=== PATIENT | female | born 1995 | race Caucasian/White ===

== ENCOUNTER 2016-11-17 14:19 | Emergency (ER) | payer OTHER ==
[~2016-11-17 14:19] MED LIST: ACET50TA PO; DIBU1OIN TOP; IBUP60TA PO; PRENTAB16 PO
[2016-11-17] MEDS ORDERED: ONDANSETRON 4MG/2ML VIAL (J2405) As Ordered ONE (14:46)
[2016-11-17] MEDS ORDERED: KETOROLAC 30 MG/ML VIAL (J1885) As Ordered ONE (14:46)
[2016-11-17 15:00] LABS: BASO % 0.3 % (0.0-1.0); EOS # 0.2 K/mm3 (0.0-0.50); EOS % 2.5 % (0.0-3.0); LARGE UNSTAINED CELL # 0.1 K/mm3 (0.0-0.4); LARGE UNSTAINED CELL % 1.2 % (0.0-4.0); LYMPH # 1.2 K/mm3 (1.5-6.5); LYMPH % 14.1 % (24.0-44.0); MEAN CORPUSCULAR HEMOGLOBIN 29.2 pg (27.0-33.0); MEAN CORPUSCULAR HGB CONC 33.8 g/dl (32.0-36.5); MEAN CORPUSCULAR VOLUME 86.4 fl (80.0-96.0); MONO # 0.3 K/mm3 (0.0-0.8); MONO % 2.9 % (0.0-5.0); NEUTROPHILS # 6.9 K/mm3 (1.8-7.7); NEUTROPHILS % 79.1 % (36.0-66.0); PLATELET COUNT, AUTOMATED 216 k/mm3 (150-450); RED CELL DISTRIBUTION WIDTH 12.8 % (11.5-14.5); WHITE BLOOD COUNT 8.7 K/mm3 (4.0-10.0)
[2016-11-17 16:07] LABS: ALBUMIN 3.7 GM/DL (3.2-5.2); ALBUMIN/GLOBULIN RATIO 1.16 (1.00-1.93); ALKALINE PHOSPHATASE 91 U/L (45-117); ALT/SGPT 27 U/L (12-78); AMYLASE 53 U/L (25-115); ANION GAP 8 MEQ/L (8-16); AST/SGOT 17 U/L (15-37); BILIRUBIN,DIRECT 0.1 MG/DL (0.0-0.2); BILIRUBIN,TOTAL 0.6 MG/DL (0.2-1.0); BLOOD UREA NITROGEN 21 MG/DL (7-18); CALCIUM LEVEL 8.2 MG/DL (8.5-10.1); CARBON DIOXIDE LEVEL 26 MEQ/L (21-32); CHLORIDE LEVEL 108 MEQ/L (98-107); CREATININE FOR GFR 0.86 MG/DL (0.55-1.02); GLOMERULAR FILTRATION RATE > 60.0 (>60); GLUCOSE, FASTING 110 MG/DL (70-105); SODIUM LEVEL 142 MEQ/L (136-145); TOTAL PROTEIN 6.9 GM/DL (6.4-8.2)
[2016-11-17] MEDS ORDERED: ISOVUE-370 76% 100ML VIAL (Q9967) As Ordered ONE (16:18)
--- NOTE | 2016-11-17 17:15 | REP ---
Clinical: Right lower quadrant pain. Technique: Axial contrast enhanced images from the lung bases to the pubic symphysis using 100 ml Isovue 370 intravenous contrast material with coronal and sagittal re-formations. Findings: Lung bases clear. Visualized heart and pericardium normal. Liver, spleen, pancreas, gallbladder, bilateral adrenal glands and kidneys are normal. The enteric system demonstrates a mild prominence to the small bowel which may reflect acute enteritis. There is no evidence for bowel obstruction and a normal terminal ileum and appendix are identified in the right lower quadrant. Pelvis demonstrates normal bladder and the age-appropriate uterus/adnexa. No pelvic fluid or ascites. No free air. No adenopathy. Vasculature normal. Surrounding musculoskeletal structures are intact. Impression: No evidence for acute appendicitis. Possible enteritis. Signed by Duncan Couch MD 11/17/2016 05:07 P
[2016-11-17] MEDS ORDERED: CIPROFLOXACIN 500 MG TAB As Ordered ONE (17:30)
[2016-11-17] MEDS ORDERED: PHENAZOPYRIDINE 100 MG TAB As Ordered ONE (17:30)
--- NOTE | 2016-11-17 17:41 | EDDOCDS ---
Physician Documentation [facility] Name: Kirstie Osborne Age: 21 yrs Sex: Female : 1995 Arrival Date: 11/17/2016 Time: 14:19 Bed I5 / M5 Private MD: [facility] Disposition: 11/17/16 17:24 Discharged to Home/Self Care. Impression: Urinary tract infection, site not specified, Abdominal and pelvic pain. - Condition is Stable. - Discharge Instructions: Abdominal Pain, Adult. - Prescriptions for Cipro 500 mg Oral Tablet - take 1 tablet by ORAL route every 12 hours; 14 tablet. Pyridium 200 mg Oral Tablet - take 1 tablet by ORAL route every 8 hours for 3 days; 9 tablet. Zofran 4 mg Oral Tablet - take 1 tablet by ORAL route 4 times per day As needed; 10 tablet. - Medication Reconciliation, Local Pharmacy Hours form. - Follow up: [facility]; When: As needed; Reason: Continuance of care. - Problem is an ongoing problem. - Symptoms are unchanged. Historical: - Allergies: No known drug Allergies; - Home Meds: 1. levothyroxine 175 mcg Oral tab 1 tab once daily 2. Zofran (as hydrochloride) 4 mg Oral tab (Last dose: 11/17/2016 13:30) 3. Ortho Tri-Cyclen (28) 0.18/0.215/0.25 mg-35 mcg (28) Oral tab 1 tab once daily - PMHx: Hypothyroidism; - PSHx: none; - Social history: Smoking status: Patient states was never smoker of tobacco. No barriers to communication noted, The patient speaks fluent Sammarinese, Speaks appropriately for age. - Family history: Not pertinent. - : The pt / caregiver states he / she is not on anticoagulants. Home medication list is obtained from the patient. - Exposure Risk Screening:: None identified. 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 (172.72 cm) (R); 17:37 BP 110 / 70; Pulse 80; Resp 18; Temp 97.0(O); Pulse Ox 100% on R/A; Pain 0/10; jmb 14:21 Body Mass Index 33.45 (99.79 kg, 172.72 cm) dd6 MDM: 14:35 NS 0.9% 1000 ml IV at bolus once ordered. ef1 14:35 Ondansetron 4 mg IVP once ordered. ef1 14:35 ketorolac 30 mg IVP once ordered. ef1 14:35 IV Saline Lock ordered. ef1 14:35 Undress patient appropriately for examination ordered. ef1 14:35 UCG by Nursing ordered. ef1 14:36 Amylase Ordered. EDMS 14:36 Basic Metabolic Profile Ordered. EDMS 14:36 CBC with Diff Ordered. EDMS 14:36 Lipase Ordered. EDMS 14:36 Liver Profile Ordered. EDMS 14:36 Urinalysis Ordered. EDMS 14:36 Urine Culture Ordered. EDMS 14:36 CT ABD & PELVIS: IV Contrast Only Ordered. EDMS 14:36 NOTHING BY MOUTH+DIET ordered. EDMS 15:10 CBC with Diff Reviewed. ef1 15:21 Urinalysis Reviewed. ef1 15:42 Financial registration complete. zo 15:50 [facility] Payment Agreement was scanned into [employer] and attached to record. zo 16:11 Basic Metabolic Profile Reviewed. ke 16:11 Lipase Reviewed. ke 16:11 Amylase Reviewed. ke 16:11 Liver Profile Reviewed. ke 17:25 Ciprofloxacin 500 mg PO once ordered. ke 17:25 Phenazopyridine 200 mg PO once ordered. ke Point of Care Testing: Urine : 14:48 hCG Reading: Negative; Control Reading: Positive; ms18 Ranges: Administered Medications: 14:52 Drug: NS 0.9% 1000 ml [sodium chloride 0.9 % intravenous solution] Route: IV; Rate: mcp bolus; Site: left hand; 14:52 Drug: Ondansetron 4 mg [ondansetron HCl 2 mg/mL intravenous solution (2 mL)] Route: mcp IVP; Site: left hand; 14:52 Drug: ketorolac 30 mg [ketorolac 30 mg/mL (1 mL) injection solution (1 mL)] Route: IVP; mcp Site: left hand; 17:25 Drug: Ciprofloxacin 500 mg [ciprofloxacin 500 mg tablet (1 tabs)] Route: PO; jmb 17:25 Drug: Phenazopyridine 200 mg [phenazopyridine 100 mg tablet (2 tabs)] Route: PO; marcus Signatures: Dispatcher [employer] Marques Michel FNP FNP ke Olin, Zoeann zo Feola, Erica, PA-C PA-C ef1 Trish Talley RN RN hs1 José Antonio Meléndez RN RN jmb Peters, Mary RN mcp The chart was reviewed and I authenticate all verbal orders and agree with the evaluation and treatment provided.Attachments: 15:50 [facility] Payment Agreement zo MTDD
--- NOTE | 2016-11-17 17:41 | EDDOCDS ---
Nurse's Notes [facility] Name: Kirstie Osborne Age: 21 yrs Sex: Female : 1995 Arrival Date: 11/17/2016 Time: 14:19 Bed I5 / M5 [facility] Diagnosis: Urinary tract infection, site not specified;Abdominal and pelvic pain Presentation: 11/17 14:23 Presenting complaint: Patient states: severe abdominal button since early this morning. hs1 Patient states nauseated and vomited x1. Patient sent from [facility] for evaluation. Pt states pain woke her up from sleep on and off throughout the night. Risk factors: the patient reports no vaginal bleeding. Adult Sepsis Screening: The patient does not have new or worsening altered mentation. Patient's respiratory rate is less than 22. Systolic blood pressure is greater than 100. Patient has a qSOFA score of 0- Negative Sepsis Screen. Suicide/Homicide risk assessment- the patient denies having any suicidal and/or homicidal ideations and does not present with any other emotional, behavioral or mental health complaints. 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 Transition of care: patient was not received from another setting of care. 14:23 Acuity: RITA Level 3 hs1 14:23 Method Of Arrival: Walkin/Carried/Asstd hs1 Triage Assessment: 14:28 General: Appears in no apparent distress, Behavior is appropriate for age, cooperative. hs1 Pain: Location: abdomen Pain currently is 5 out of 10 on a pain scale. HIV screening NA for this visit active duty . GI: Abdomen is non- distended Reports bloating, diarrhea, nausea, vomiting. 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 levothyroxine 175 mcg Oral tab 1 tab once daily 2. Zofran (as hydrochloride) 4 mg Oral tab (Last dose: 11/17/2016 13:30) 3. Ortho Tri-Cyclen (28) 0.18/0.215/0.25 mg-35 mcg (28) Oral tab 1 tab once daily - PMHx: Hypothyroidism; - PSHx: none; - Social history: Smoking status: Patient states was never smoker of tobacco. No barriers to communication noted, The patient speaks fluent Maori, Speaks appropriately for age. - Family history: Not pertinent. - : The pt / caregiver states he / she is not on anticoagulants. Home medication list is obtained from the patient. - Exposure Risk Screening:: None identified. Screenin:53 Screening information is obtained from the patient. Fall risk: No risks identified. kr3 Assistance ADL's: requires no assistance with activities of daily living. Abuse/DV Screen: The patient / caregiver reports he/she is: not in a situation that causes fear, pain or injury. Nutritional screening: No deficits noted. Advance Directives: Currently, there is no health care proxy. home support is adequate. Assessment: 14:52 General: Appears in no apparent distress, comfortable, Behavior is cooperative. Pain: kr3 Location: right upper quadrant and left upper quadrant Pain currently is 5 out of 10 on a pain scale. Neurological: Level of Consciousness is awake, alert. Respiratory: Respiratory effort is even, unlabored. GI: Abdomen is non- distended Bowel sounds present X 4 quads. Abd is soft and non tender X 4 quads. GI: Reports nausea, vomiting, had loose bowel movement this AM. Derm: Skin is normal. 15:49 General: Appears in no apparent distress, comfortable, Behavior is appropriate for age, jmb cooperative, Patient laying on stretcher with friends at bedside. NO voiced complaints at this time. . Neurological: Level of Consciousness is awake, alert, obeys commands, Oriented to person, place, time. Respiratory: Airway is patent Respiratory effort is even, unlabored, Respiratory pattern is regular, symmetrical. 16:41 General: Appears in no apparent distress, comfortable, Behavior is appropriate for age, jmb cooperative. Neurological: Level of Consciousness is awake, alert, obeys commands, Oriented to person, place, time. Respiratory: Airway is patent Respiratory effort is even, unlabored, Respiratory pattern is regular, symmetrical. 17:37 General: Patient instructed on discharge instructions. Patient asked if there were any b questions regarding discharge, patient stated no. IV discontinued per hospital policy. Patient signed discharge instructions. Patient discharged in stable condition. . Vital Signs: 14:21 BP 115 / 73; Pulse 94; Resp 18 S; Temp 97.5(O); Pulse Ox 100% on R/A; Weight 99.79 kg dd6 (R); Height 68 in. (172.72 cm) (R); 17:37 BP 110 / 70; Pulse 80; Resp 18; Temp 97.0(O); Pulse Ox 100% on R/A; Pain 0/10; jmb 14:21 Body Mass Index 33.45 (99.79 kg, 172.72 cm) dd6 Vitals: 14:21 Log In Time: November 17, 2016 at 14:19. dd6 ED Course: 14:20 Patient visited by Primitivo Eugene PCA. dd6 14:20 Patient moved to Waiting dd6 14:21 [facility]. dd6 14:22 Chaparrita Mckeon PA-C is [facility]. ef1 14:22 Patient moved to Pre RCE dd6 14:23 Marga Torres MD is Attending Physician. ef1 14:26 Triage Initiated hs1 14:28 Patient moved to Triage 1 ms18 14:29 Patient visited by Chaparrita Mckeon PA-C. ef1 14:36 Patient moved to I5 / M5 rs6 14:42 Pt greeted and oriented to ED. Patient advised of names of staff involved in care, jam1 location of call laws, wait times and NPO status. Patient has correct armband on for positive identification. Placed in gown. Bed in low position. Call light in reach. Side rails up X 1. Door closed. 14:51 Amylase Sent. kr3 14:51 Basic Metabolic Profile Sent. kr3 14:51 CBC with Diff Sent. kr3 14:51 Lipase Sent. kr3 14:51 Liver Profile Sent. kr3 14:51 Urinalysis Sent. kr3 14:52 Urine Culture Sent. kr3 14:53 The patient / caregiver is instructed regarding the plan of care and ED course. kr3 Accompanied by Friend, Patient has correct armband on for positive identification. Placed in gown. Bed in low position. Call light in reach. Side rails up X 1. 14:53 Inserted saline lock: 20 gauge in left hand and blood collected. The patient tolerated kr3 the procedure well. 15:10 Patient visited by Chaparrita Mckeon PA-C. ef1 15:45 Patient visited by Chaparrita Mckeon PA-C. ef1 15:49 Patient visited by José Antonio Meléndez RN. jmb 15:50 [facility] Payment Agreement was scanned into [employer] and attached to record. zo 15:52 PHCP role handed off by Chaparrita Mckeon PA-C ke 15:52 Marques Ying FNP is PHCP. ke 15:52 Patient visited by Marques Ying FNP. ke 16:19 Patient visited by Marques Ying FNP. ke 16:41 Patient visited by José Antonio Meléndez RN. janieb 17:05 Patient has correct armband on for positive identification. Bed in low position. Call jam1 light in reach. Side rails up X 1. Door closed. 17:11 Patient visited by Marques Ying FNP. ke 17:23 [facility] SMITH is Referral Physician. ke 17:37 Discontinued lock intact, bleeding controlled, pressure dressing applied, No jmb redness/swelling at site. No procedures done that require assistance. Administered Medications: 14:52 Drug: NS 0.9% 1000 ml [sodium chloride 0.9 % intravenous solution] Route: IV; Rate: mcp bolus; Site: left hand; 14:52 Drug: Ondansetron 4 mg [ondansetron HCl 2 mg/mL intravenous solution (2 mL)] Route: mcp IVP; Site: left hand; 14:52 Drug: ketorolac 30 mg [ketorolac 30 mg/mL (1 mL) injection solution (1 mL)] Route: IVP; mcp Site: left hand; 17:25 Drug: Ciprofloxacin 500 mg [ciprofloxacin 500 mg tablet (1 tabs)] Route: PO; janieb 17:25 Drug: Phenazopyridine 200 mg [phenazopyridine 100 mg tablet (2 tabs)] Route: PO; marcus Point of Care Testing: Urine : 14:48 hCG Reading: Negative; Control Reading: Positive; ms18 Ranges: Order Results: Lab Order: Amylase; SPEC'M 11/17/16 15:33 Test: AMYLASE; Value: 53; Range: 25-115; Units: U/L; Status: F Lab Order: Basic Metabolic Profile; SPEC'M 11/17/16 15:33 Test: GLUCOSE, FASTING; Value: 110; Range: 70-105; Abnormal: Above high normal; Units: MG/DL; Status: F Test: BLOOD UREA NITROGEN; Value: 21; Range: 7-18; Abnormal: Above high normal; Units: MG/DL; Status: F Test: CREATININE FOR GFR; Value: 0.86; Range: 0.55-1.02; Units: MG/DL; Status: F Test: GLOMERULAR FILTRATION RATE; Value: > 60.0; Range: >60; Status: F Test: SODIUM LEVEL; Value: 142; Range: 136-145; Units: MEQ/L; Status: F Test: POTASSIUM SERUM; Value: 4.0; Range: 3.5-5.1; Units: MEQ/L; Status: F Test: CHLORIDE LEVEL; Value: 108; Range: 98-107; Abnormal: Above high normal; Units: MEQ/L; Status: F Test: CARBON DIOXIDE LEVEL; Value: 26; Range: 21-32; Units: MEQ/L; Status: F Test: ANION GAP; Value: 8; Range: 8-16; Units: MEQ/L; Status: F Test: CALCIUM LEVEL; Value: 8.2; Range: 8.5-10.1; Abnormal: Below low normal; Units: MG/DL; Status: F Test Note: ; Units are mL/min/1.73 m2 Chronic Kidney Disease Staging per NKF: Stage I & II GFR >=60 Normal to Mildly Decreased Stage III GFR 30-59 Moderately Decreased Stage IV GFR 15-29 Severely Decreased Stage V GFR <15 Very Little GFR Left ESRD GFR <15 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 Lab Order: CBC with Diff; SPEC'M 11/17/16 14:50 Test: WHITE BLOOD COUNT; Value: 8.7; Range: 4.0-10.0; Units: K/mm3; Status: F Test: RED BLOOD COUNT; Value: 5.09; Range: 4.00-5.40; Units: M/mm3; Status: F Test: HEMOGLOBIN; Value: 14.9; Range: 12.0-16.0; Units: g/dl; Status: F Test: HEMATOCRIT; Value: 44.0; Range: 36.0-47.0; Units: %; Status: F Test: MEAN CORPUSCULAR VOLUME; Value: 86.4; Range: 80.0-96.0; Units: fl; Status: F Test: MEAN CORPUSCULAR HEMOGLOBIN; Value: 29.2; Range: 27.0-33.0; Units: pg; Status: F Test: MEAN CORPUSCULAR HGB CONC; Value: 33.8; Range: 32.0-36.5; Units: g/dl; Status: F Test: RED CELL DISTRIBUTION WIDTH; Value: 12.8; Range: 11.5-14.5; Units: %; Status: F Test: PLATELET COUNT, AUTOMATED; Value: 216; Range: 150-450; Units: k/mm3; Status: F Test: NEUTROPHILS %; Value: 79.1; Range: 36.0-66.0; Abnormal: Above high normal; Units: %; Status: F Test: LYMPH %; Value: 14.1; Range: 24.0-44.0; Abnormal: Below low normal; Units: %; Status: F Test: MONO %; Value: 2.9; Range: 0.0-5.0; Units: %; Status: F Test: EOS %; Value: 2.5; Range: 0.0-3.0; Units: %; Status: F Test: BASO %; Value: 0.3; Range: 0.0-1.0; Units: %; Status: F Test: LARGE UNSTAINED CELL %; Value: 1.2; Range: 0.0-4.0; Units: %; Status: F Test: NEUTROPHILS #; Value: 6.9; Range: 1.8-7.7; Units: K/mm3; Status: F Test: LYMPH #; Value: 1.2; Range: 1.5-6.5; Abnormal: Below low normal; Units: K/mm3; Status: F Test: MONO #; Value: 0.3; Range: 0.0-0.8; Units: K/mm3; Status: F Test: EOS #; Value: 0.2; Range: 0.0-0.50; Units: K/mm3; Status: F Test: BASO #; Value: 0.0; Range: 0.0-0.2; Units: K/mm3; Status: F Test: LARGE UNSTAINED CELL #; Value: 0.1; Range: 0.0-0.4; Units: K/mm3; Status: F Lab Order: Lipase; SPEC'M 11/17/16 15:33 Test: LIPASE; Value: 66; Range: 73-393; Abnormal: Below low normal; Units: U/L; Status: F Lab Order: Liver Profile; SPEC'M 11/17/16 15:33 Test: AST/SGOT; Value: 17; Range: 15-37; Units: U/L; Status: F Test: ALT/SGPT; Value: 27; Range: 12-78; Units: U/L; Status: F Test: ALKALINE PHOSPHATASE; Value: 91; Range: 45-117; Units: U/L; Status: F Test: BILIRUBIN,TOTAL; Value: 0.6; Range: 0.2-1.0; Units: MG/DL; Status: F Test: BILIRUBIN,DIRECT; Value: 0.1; Range: 0.0-0.2; Units: MG/DL; Status: F Test: TOTAL PROTEIN; Value: 6.9; Range: 6.4-8.2; Units: GM/DL; Status: F Test: ALBUMIN; Value: 3.7; Range: 3.2-5.2; Units: GM/DL; Status: F Test: ALBUMIN/GLOBULIN RATIO; Value: 1.16; Range: 1.00-1.93; Status: F Lab Order: Urinalysis; SPEC'M 11/17/16 14:39 Test: APPEARANCE, URINE; Value: HAZY; Range: CLEAR; Status: F Test: COLOR, URINE; Value: YELLOW; Range: YELLOW; Status: F Test: PH,URINE; Value: 5.0; Range: 5.0-9.0; Units: UNITS; Status: F Test: SPECIFIC GRAVITY URINE AUTO; Value: 1.032; Range: 1.002-1.035; Status: F Test: PROTEIN, URINE AUTO; Value: 1+; Range: NEGATIVE; Abnormal: Above high normal; Units: mg/dL; Status: F Test: GLUCOSE, URINE (UA) AUTO; Value: NEGATIVE; Range: NEGATIVE; Units: mg/dL; Status: F Test: KETONE, URINE AUTO; Value: NEGATIVE; Range: NEGATIVE; Units: mg/dL; Status: F Test: UROBILINOGEN, URINE AUTO; Value: 0.2; Range: 0.0-2.0; Units: mg/dL; Status: F Test: BILIRUBIN, URINE AUTO; Value: NEGATIVE; Range: NEGATIVE; Status: F Test: NITRITE, URINE AUTO; Value: NEGATIVE; Range: NEGATIVE; Status: F Test: LEUKOCYTE ESTERASE, URINE AUTO; Value: 3+; Range: NEGATIVE; Abnormal: Above high normal; Status: F Test: BLOOD, URINE BLOOD; Value: NEGATIVE; Range: NEGATIVE; Status: F Test: WBC, URINE AUTO; Value: 51; Range: 0-3; Abnormal: Above high normal; Units: /HPF; Status: F Test: RBC, URINE AUTO; Value: 7; Range: 0-3; Abnormal: Above high normal; Units: /HPF; Status: F Test: BACTERIA, URINE AUTO; Value: 1+; Range: NEGATIVE; Abnormal: Above high normal; Status: F Test: SQUAMOUS EPITHELIAL CELL UR AU; Value: 6; Range: 0-6; Units: /HPF; Status: F Test: MUCUS, URINE; Value: SMALL; Range: NEGATIVE; Status: F Test: HYALINE CAST, URINE AUTO; Value: 0; Range: 0-1; Units: /LPF; Status: F Outcome: 17:24 Discharge ordered by Provider. nish 17:37 Discharge Assessment: Patient awake, alert and oriented x 3. No cognitive and/or jmb functional deficits noted. Patient verbalized understanding of disposition instructions. Patient awake and alert. obeys commands, Oriented to person, place and time. Patient verbalized understanding of disposition instructions. Patient has no functional deficits. patient administered narcotics - no. The following High Risk Discharge criteria are identified: None. Discharged to home ambulatory, with significant other. Condition: stable. Discharge instructions given to patient, Instructed on discharge instructions, follow up and referral plans. medication usage, Demonstrated understanding of instructions, medications, Pt was receptive of discharge instructions/ teaching. Prescriptions given X 3. CT Study completed. Property sent home with patient. 17:40 Patient left the ED. jmb Signatures: Mirta Wynn, RN RN Jennifer Lawrence, CLINIC CMA CLINIC CMA jam1 Marques Ying, EDITOR MAP EDITOR MAP Viji Genao RN RN kr3 Ofe Jeong Daniell, CLINIC CMA CLINIC CMA dd6 Chaparrita Mckeon, PA-C PA-C ef1 Trish Talley RN RN hs1 José Antonio Meléndez RN RN Vikki Johnson RN RN ms18 Gaines, Deena, CLINIC CMA CLINIC CMA rs6 MTDD
--- NOTE | 2016-11-19 18:41 | EDDOCDS ---
Physician Documentation [facility] Name: Kirstie Osborne Age: 21 yrs Sex: Female : 1995 Arrival Date: 11/17/2016 Time: 14:19 Bed I5 / M5 Private MD: [facility] Disposition: 11/17/16 17:24 Discharged to Home/Self Care. Impression: Urinary tract infection, site not specified, Abdominal and pelvic pain. - Condition is Stable. - Discharge Instructions: Abdominal Pain, Adult. - Prescriptions for Cipro 500 mg Oral Tablet - take 1 tablet by ORAL route every 12 hours; 14 tablet. Pyridium 200 mg Oral Tablet - take 1 tablet by ORAL route every 8 hours for 3 days; 9 tablet. Zofran 4 mg Oral Tablet - take 1 tablet by ORAL route 4 times per day As needed; 10 tablet. - Medication Reconciliation, Local Pharmacy Hours form. - Follow up: [facility]; When: As needed; Reason: Continuance of care. - Problem is an ongoing problem. - Symptoms are unchanged. Historical: - Allergies: No known drug Allergies; - Home Meds: 1. levothyroxine 175 mcg Oral tab 1 tab once daily 2. Zofran (as hydrochloride) 4 mg Oral tab (Last dose: 11/17/2016 13:30) 3. Ortho Tri-Cyclen (28) 0.18/0.215/0.25 mg-35 mcg (28) Oral tab 1 tab once daily - PMHx: Hypothyroidism; - PSHx: none; - Social history: Smoking status: Patient states was never smoker of tobacco. No barriers to communication noted, The patient speaks fluent Tajik, Speaks appropriately for age. - Family history: Not pertinent. - : The pt / caregiver states he / she is not on anticoagulants. Home medication list is obtained from the patient. - Exposure Risk Screening:: None identified. [employer]: 11/17 14:29 LMP 11/08/2016 hs1 Vital Signs: 14:21 BP 115 / 73; Pulse 94; Resp 18 S; Temp 97.5(O); Pulse Ox 100% on R/A; Weight 99.79 kg / dd6 220 lbs (R); Height 68 in. (172.72 cm) (R); 17:37 BP 110 / 70; Pulse 80; Resp 18; Temp 97.0(O); Pulse Ox 100% on R/A; Pain 0/10; jmb 14:21 Body Mass Index 33.45 (99.79 kg, 172.72 cm) dd6 MDM: 14:35 NS 0.9% 1000 ml IV at bolus once ordered. ef1 14:35 Ondansetron 4 mg IVP once ordered. ef1 14:35 ketorolac 30 mg IVP once ordered. ef1 14:35 IV Saline Lock ordered. ef1 14:35 Undress patient appropriately for examination ordered. ef1 14:35 UCG by Nursing ordered. ef1 14:36 Amylase Ordered. EDMS 14:36 Basic Metabolic Profile Ordered. EDMS 14:36 CBC with Diff Ordered. EDMS 14:36 Lipase Ordered. EDMS 14:36 Liver Profile Ordered. EDMS 14:36 Urinalysis Ordered. EDMS 14:36 Urine Culture Ordered. EDMS 14:36 CT ABD & PELVIS: IV Contrast Only Ordered. EDMS 14:36 NOTHING BY MOUTH+DIET ordered. EDMS 15:10 CBC with Diff Reviewed. ef1 15:21 Urinalysis Reviewed. ef1 15:42 Financial registration complete. zo 15:50 [facility] Payment Agreement was scanned into [employer] and attached to record. zo 16:11 Basic Metabolic Profile Reviewed. ke 16:11 Lipase Reviewed. ke 16:11 Amylase Reviewed. ke 16:11 Liver Profile Reviewed. ke 17:25 Ciprofloxacin 500 mg PO once ordered. ke 17:25 Phenazopyridine 200 mg PO once ordered. ke 11/18 10:08 T-Sheet-- Draft Copy was scanned into [employer] and attached to record. gb Point of Care Testing: Urine : 11/17 14:48 hCG Reading: Negative; Control Reading: Positive; ms18 Ranges: Administered Medications: 14:52 Drug: NS 0.9% 1000 ml [sodium chloride 0.9 % intravenous solution] Route: IV; Rate: mcp bolus; Site: left hand; 14:52 Drug: Ondansetron 4 mg [ondansetron HCl 2 mg/mL intravenous solution (2 mL)] Route: mcp IVP; Site: left hand; 14:52 Drug: ketorolac 30 mg [ketorolac 30 mg/mL (1 mL) injection solution (1 mL)] Route: IVP; mcp Site: left hand; 17:25 Drug: Ciprofloxacin 500 mg [ciprofloxacin 500 mg tablet (1 tabs)] Route: PO; marcus 17:25 Drug: Phenazopyridine 200 mg [phenazopyridine 100 mg tablet (2 tabs)] Route: PO; marcus Signatures: Dispatcher [employer] EDMS Barbara Arce, Tucker Reg gb Marques Ying, VALUE ENGINEER VALUE ENGINEER Ofe Short Erica, PA-C PAMarcus ef1 Trish Talley RN RN hs1 José Antonio Meléndez RN RN Mirta Dick RN [facility] The chart was reviewed and I authenticate all verbal orders and agree with the evaluation and treatment provided.Attachments: 15:50 [facility] Payment Agreement zo 11/18 10:08 T-Sheet-- Draft Copy gb Chart Complete MTDD
--- NOTE | 2016-11-19 18:41 | EDDOCDS ---
Nurse's Notes [facility] Name: Kirstie Osborne Age: 21 yrs Sex: Female : 1995 Arrival Date: 11/17/2016 Time: 14:19 Bed I5 / M5 [facility] Diagnosis: Urinary tract infection, site not specified;Abdominal and pelvic pain Presentation: 11/17 14:23 Presenting complaint: Patient states: severe abdominal button since early this morning. hs1 Patient states nauseated and vomited x1. Patient sent from [facility] for evaluation. Pt states pain woke her up from sleep on and off throughout the night. Risk factors: the patient reports no vaginal bleeding. Adult Sepsis Screening: The patient does not have new or worsening altered mentation. Patient's respiratory rate is less than 22. Systolic blood pressure is greater than 100. Patient has a qSOFA score of 0- Negative Sepsis Screen. Suicide/Homicide risk assessment- the patient denies having any suicidal and/or homicidal ideations and does not present with any other emotional, behavioral or mental health complaints. 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 Transition of care: patient was not received from another setting of care. 14:23 Acuity: RITA Level 3 hs1 14:23 Method Of Arrival: Walkin/Carried/Asstd hs1 Triage Assessment: 14:28 General: Appears in no apparent distress, Behavior is appropriate for age, cooperative. hs1 Pain: Location: abdomen Pain currently is 5 out of 10 on a pain scale. HIV screening NA for this visit active duty . GI: Abdomen is non- distended Reports bloating, diarrhea, nausea, vomiting. RN NEUROLOGY: 14:29 LMP 11/08/2016 hs1 Historical: - Allergies: No known drug Allergies; - Home Meds: 1. levothyroxine 175 mcg Oral tab 1 tab once daily 2. Zofran (as hydrochloride) 4 mg Oral tab (Last dose: 11/17/2016 13:30) 3. Ortho Tri-Cyclen (28) 0.18/0.215/0.25 mg-35 mcg (28) Oral tab 1 tab once daily - PMHx: Hypothyroidism; - PSHx: none; - Social history: Smoking status: Patient states was never smoker of tobacco. No barriers to communication noted, The patient speaks fluent Khmer, Speaks appropriately for age. - Family history: Not pertinent. - : The pt / caregiver states he / she is not on anticoagulants. Home medication list is obtained from the patient. - Exposure Risk Screening:: None identified. Screenin:53 Screening information is obtained from the patient. Fall risk: No risks identified. kr3 Assistance ADL's: requires no assistance with activities of daily living. Abuse/DV Screen: The patient / caregiver reports he/she is: not in a situation that causes fear, pain or injury. Nutritional screening: No deficits noted. Advance Directives: Currently, there is no health care proxy. home support is adequate. Assessment: 14:52 General: Appears in no apparent distress, comfortable, Behavior is cooperative. Pain: kr3 Location: right upper quadrant and left upper quadrant Pain currently is 5 out of 10 on a pain scale. Neurological: Level of Consciousness is awake, alert. Respiratory: Respiratory effort is even, unlabored. GI: Abdomen is non- distended Bowel sounds present X 4 quads. Abd is soft and non tender X 4 quads. GI: Reports nausea, vomiting, had loose bowel movement this AM. Derm: Skin is normal. 15:49 General: Appears in no apparent distress, comfortable, Behavior is appropriate for age, jmb cooperative, Patient laying on stretcher with friends at bedside. NO voiced complaints at this time. . Neurological: Level of Consciousness is awake, alert, obeys commands, Oriented to person, place, time. Respiratory: Airway is patent Respiratory effort is even, unlabored, Respiratory pattern is regular, symmetrical. 16:41 General: Appears in no apparent distress, comfortable, Behavior is appropriate for age, jmb cooperative. Neurological: Level of Consciousness is awake, alert, obeys commands, Oriented to person, place, time. Respiratory: Airway is patent Respiratory effort is even, unlabored, Respiratory pattern is regular, symmetrical. 17:37 General: Patient instructed on discharge instructions. Patient asked if there were any b questions regarding discharge, patient stated no. IV discontinued per hospital policy. Patient signed discharge instructions. Patient discharged in stable condition. . Vital Signs: 14:21 BP 115 / 73; Pulse 94; Resp 18 S; Temp 97.5(O); Pulse Ox 100% on R/A; Weight 99.79 kg dd6 (R); Height 68 in. (172.72 cm) (R); 17:37 BP 110 / 70; Pulse 80; Resp 18; Temp 97.0(O); Pulse Ox 100% on R/A; Pain 0/10; jmb 14:21 Body Mass Index 33.45 (99.79 kg, 172.72 cm) dd6 Vitals: 14:21 Log In Time: November 17, 2016 at 14:19. dd6 ED Course: 14:20 Patient visited by Primitivo Eugene PCA. dd6 14:20 Patient moved to Waiting dd6 14:21 [facility]. dd6 14:22 Chaparrita Mckeon [facility]-C [facility] ef1 14:22 Patient moved to Pre RCE dd6 14:23 Marga Torres MD is Attending Physician. ef1 14:26 Triage Initiated hs1 14:28 Patient moved to Triage 1 ms18 14:29 Patient visited by Chaparrita Mckeon PA-C. ef1 14:36 Patient moved to I5 / M5 rs6 14:42 Pt greeted and oriented to ED. Patient advised of names of staff involved in care, jam1 location of call laws, wait times and NPO status. Patient has correct armband on for positive identification. Placed in gown. Bed in low position. Call light in reach. Side rails up X 1. Door closed. 14:51 Amylase Sent. kr3 14:51 Basic Metabolic Profile Sent. kr3 14:51 CBC with Diff Sent. kr3 14:51 Lipase Sent. kr3 14:51 Liver Profile Sent. kr3 14:51 Urinalysis Sent. kr3 14:52 Urine Culture Sent. kr3 14:53 The patient / caregiver is instructed regarding the plan of care and ED course. kr3 Accompanied by Friend, Patient has correct armband on for positive identification. Placed in gown. Bed in low position. Call light in reach. Side rails up X 1. 14:53 Inserted saline lock: 20 gauge in left hand and blood collected. The patient tolerated kr3 the procedure well. 15:10 Patient visited by Chaparrita Mckeon PA-C. ef1 15:45 Patient visited by Chaparrita Mckeon PA-C. ef1 15:49 Patient visited by José Antonio Meléndez RN. jmb 15:50 [facility] Payment Agreement was scanned into [employer] and attached to record. zo 15:52 PHCP role handed off by Chaparrita Mckeon PA-C ke 15:52 Marques Ying FNP is PHCP. ke 15:52 Patient visited by Marques Ying FNP. ke 16:19 Patient visited by Marques Ying FNP. ke 16:41 Patient visited by José Antonio Meléndez RN. janieb 17:05 Patient has correct armband on for positive identification. Bed in low position. Call jam1 light in reach. Side rails up X 1. Door closed. 17:11 Patient visited by Marques Ying FNP. ke 17:23 [facility] SM[facility] is Referral Physician. ke 17:37 Discontinued lock intact, bleeding controlled, pressure dressing applied, No jmb redness/swelling at site. No procedures done that require assistance. 18:18 CT ABD & PELVIS: IV Contrast Only Returned. EDMS 11/18 10:08 T-Sheet-- Draft Copy was scanned into [employer] and attached to record. gb Administered Medications: 11/17 14:52 Drug: NS 0.9% 1000 ml [sodium chloride 0.9 % intravenous solution] Route: IV; Rate: mcp bolus; Site: left hand; 14:52 Drug: Ondansetron 4 mg [ondansetron HCl 2 mg/mL intravenous solution (2 mL)] Route: mcp IVP; Site: left hand; 14:52 Drug: ketorolac 30 mg [ketorolac 30 mg/mL (1 mL) injection solution (1 mL)] Route: IVP; mcp Site: left hand; 17:25 Drug: Ciprofloxacin 500 mg [ciprofloxacin 500 mg tablet (1 tabs)] Route: PO; marcus 17:25 Drug: Phenazopyridine 200 mg [phenazopyridine 100 mg tablet (2 tabs)] Route: PO; marcus Point of Care Testing: Urine : 14:48 hCG Reading: Negative; Control Reading: Positive; ms18 Ranges: Order Results: Lab Order: Amylase; SPEC'M 11/17/16 15:33 Test: AMYLASE; Value: 53; Range: 25-115; Units: U/L; Status: F Lab Order: Basic Metabolic Profile; SPEC'M 11/17/16 15:33 Test: GLUCOSE, FASTING; Value: 110; Range: 70-105; Abnormal: Above high normal; Units: MG/DL; Status: F Test: BLOOD UREA NITROGEN; Value: 21; Range: 7-18; Abnormal: Above high normal; Units: MG/DL; Status: F Test: CREATININE FOR GFR; Value: 0.86; Range: 0.55-1.02; Units: MG/DL; Status: F Test: GLOMERULAR FILTRATION RATE; Value: > 60.0; Range: >60; Status: F Test: SODIUM LEVEL; Value: 142; Range: 136-145; Units: MEQ/L; Status: F Test: POTASSIUM SERUM; Value: 4.0; Range: 3.5-5.1; Units: MEQ/L; Status: F Test: CHLORIDE LEVEL; Value: 108; Range: 98-107; Abnormal: Above high normal; Units: MEQ/L; Status: F Test: CARBON DIOXIDE LEVEL; Value: 26; Range: 21-32; Units: MEQ/L; Status: F Test: ANION GAP; Value: 8; Range: 8-16; Units: MEQ/L; Status: F Test: CALCIUM LEVEL; Value: 8.2; Range: 8.5-10.1; Abnormal: Below low normal; Units: MG/DL; Status: F Test Note: ; Units are mL/min/1.73 m2 Chronic Kidney Disease Staging per NKF: Stage I & II GFR >=60 Normal to Mildly Decreased Stage III GFR 30-59 Moderately Decreased Stage IV GFR 15-29 Severely Decreased Stage V GFR <15 Very Little GFR Left ESRD GFR <15 on NAVAL DESIGNER Lab Order: CBC with Diff; SPEC'M 11/17/16 14:50 Test: WHITE BLOOD COUNT; Value: 8.7; Range: 4.0-10.0; Units: K/mm3; Status: F Test: RED BLOOD COUNT; Value: 5.09; Range: 4.00-5.40; Units: M/mm3; Status: F Test: HEMOGLOBIN; Value: 14.9; Range: 12.0-16.0; Units: g/dl; Status: F Test: HEMATOCRIT; Value: 44.0; Range: 36.0-47.0; Units: %; Status: F Test: MEAN CORPUSCULAR VOLUME; Value: 86.4; Range: 80.0-96.0; Units: fl; Status: F Test: MEAN CORPUSCULAR HEMOGLOBIN; Value: 29.2; Range: 27.0-33.0; Units: pg; Status: F Test: MEAN CORPUSCULAR HGB CONC; Value: 33.8; Range: 32.0-36.5; Units: g/dl; Status: F Test: RED CELL DISTRIBUTION WIDTH; Value: 12.8; Range: 11.5-14.5; Units: %; Status: F Test: PLATELET COUNT, AUTOMATED; Value: 216; Range: 150-450; Units: k/mm3; Status: F Test: NEUTROPHILS %; Value: 79.1; Range: 36.0-66.0; Abnormal: Above high normal; Units: %; Status: F Test: LYMPH %; Value: 14.1; Range: 24.0-44.0; Abnormal: Below low normal; Units: %; Status: F Test: MONO %; Value: 2.9; Range: 0.0-5.0; Units: %; Status: F Test: EOS %; Value: 2.5; Range: 0.0-3.0; Units: %; Status: F Test: BASO %; Value: 0.3; Range: 0.0-1.0; Units: %; Status: F Test: LARGE UNSTAINED CELL %; Value: 1.2; Range: 0.0-4.0; Units: %; Status: F Test: NEUTROPHILS #; Value: 6.9; Range: 1.8-7.7; Units: K/mm3; Status: F Test: LYMPH #; Value: 1.2; Range: 1.5-6.5; Abnormal: Below low normal; Units: K/mm3; Status: F Test: MONO #; Value: 0.3; Range: 0.0-0.8; Units: K/mm3; Status: F Test: EOS #; Value: 0.2; Range: 0.0-0.50; Units: K/mm3; Status: F Test: BASO #; Value: 0.0; Range: 0.0-0.2; Units: K/mm3; Status: F Test: LARGE UNSTAINED CELL #; Value: 0.1; Range: 0.0-0.4; Units: K/mm3; Status: F Lab Order: Lipase; SPEC'M 11/17/16 15:33 Test: LIPASE; Value: 66; Range: 73-393; Abnormal: Below low normal; Units: U/L; Status: F Lab Order: Liver Profile; SPEC'M 11/17/16 15:33 Test: AST/SGOT; Value: 17; Range: 15-37; Units: U/L; Status: F Test: ALT/SGPT; Value: 27; Range: 12-78; Units: U/L; Status: F Test: ALKALINE PHOSPHATASE; Value: 91; Range: 45-117; Units: U/L; Status: F Test: BILIRUBIN,TOTAL; Value: 0.6; Range: 0.2-1.0; Units: MG/DL; Status: F Test: BILIRUBIN,DIRECT; Value: 0.1; Range: 0.0-0.2; Units: MG/DL; Status: F Test: TOTAL PROTEIN; Value: 6.9; Range: 6.4-8.2; Units: GM/DL; Status: F Test: ALBUMIN; Value: 3.7; Range: 3.2-5.2; Units: GM/DL; Status: F Test: ALBUMIN/GLOBULIN RATIO; Value: 1.16; Range: 1.00-1.93; Status: F Lab Order: Urinalysis; SPEC'M 11/17/16 14:39 Test: APPEARANCE, URINE; Value: HAZY; Range: CLEAR; Status: F Test: COLOR, URINE; Value: YELLOW; Range: YELLOW; Status: F Test: PH,URINE; Value: 5.0; Range: 5.0-9.0; Units: UNITS; Status: F Test: SPECIFIC GRAVITY URINE AUTO; Value: 1.032; Range: 1.002-1.035; Status: F Test: PROTEIN, URINE AUTO; Value: 1+; Range: NEGATIVE; Abnormal: Above high normal; Units: mg/dL; Status: F Test: GLUCOSE, URINE (UA) AUTO; Value: NEGATIVE; Range: NEGATIVE; Units: mg/dL; Status: F Test: KETONE, URINE AUTO; Value: NEGATIVE; Range: NEGATIVE; Units: mg/dL; Status: F Test: UROBILINOGEN, URINE AUTO; Value: 0.2; Range: 0.0-2.0; Units: mg/dL; Status: F Test: BILIRUBIN, URINE AUTO; Value: NEGATIVE; Range: NEGATIVE; Status: F Test: NITRITE, URINE AUTO; Value: NEGATIVE; Range: NEGATIVE; Status: F Test: LEUKOCYTE ESTERASE, URINE AUTO; Value: 3+; Range: NEGATIVE; Abnormal: Above high normal; Status: F Test: BLOOD, URINE BLOOD; Value: NEGATIVE; Range: NEGATIVE; Status: F Test: WBC, URINE AUTO; Value: 51; Range: 0-3; Abnormal: Above high normal; Units: /HPF; Status: F Test: RBC, URINE AUTO; Value: 7; Range: 0-3; Abnormal: Above high normal; Units: /HPF; Status: F Test: BACTERIA, URINE AUTO; Value: 1+; Range: NEGATIVE; Abnormal: Above high normal; Status: F Test: SQUAMOUS EPITHELIAL CELL UR AU; Value: 6; Range: 0-6; Units: /HPF; Status: F Test: MUCUS, URINE; Value: SMALL; Range: NEGATIVE; Status: F Test: HYALINE CAST, URINE AUTO; Value: 0; Range: 0-1; Units: /LPF; Status: F Lab Order: Urine Culture; SPEC'M 11/17/16 14:39 Test: URINE CULTURE; Value: ORGANISM 1: ESCHERICHIA COLI; Status: F Test: URINE CULTURE; Value: ESCHERICHIA COLI; Status: F Test: URINE CULTURE; Value: COLONY COUNT CFU/ml 80,000; Status: F Test: URINE CULTURE; Value: GRAM NEG SENSI - VITEK 80; Status: F Test: URINE CULTURE; Value: Method: VIT2; Status: F Test: URINE CULTURE; Value: EXTD BRD SPCTRM BETA LACTAMASE -; Status: F Test: URINE CULTURE; Value: TRIMETHOPRIM/SULFAMETHOXAZOLE >=320 R; Status: F Test: URINE CULTURE; Value: AMPICILLIN >=32 R; Status: F Test: URINE CULTURE; Value: GENTAMICIN <=1 S; Status: F Test: URINE CULTURE; Value: NITROFURANTOIN <=16 S; Status: F Test: URINE CULTURE; Value: CEFAZOLIN <=4 S; Status: F Test: URINE CULTURE; Value: LEVOFLOXACIN <=0.12 S; Status: F Test: URINE CULTURE; Value: TOBRAMYCIN <=1 S; Status: F Test: URINE CULTURE; Value: CEFTRIAXONE <=1 S; Status: F Test: URINE CULTURE; Value: CEFTAZIDIME <=1 S; Status: F Test: URINE CULTURE; Value: AMPICILLIN/SULBACTAM >=32 R; Status: F Test: URINE CULTURE; Value: PIPERACILLIN/TAZOBACTAM <=4 S; Status: F Test: URINE CULTURE; Value: AZTREONAM <=1 S; Status: F Test: URINE CULTURE; Value: ERTAPENEM <=0.5 S; Status: F Test: URINE CULTURE; Value: MEROPENEM <=0.25 S; Status: F Test: URINE CULTURE; Value: TIGECYCLINE <=0.5 S; Status: F Test: URINE CULTURE; Value: CEFEPIME <=1 S; Status: F Radiology Order: CT ABD & PELVIS: IV Contrast Only Test: CT ABD & PELVIS: IV Contrast Only REASON FOR EXAMINATION: Appendicitis; Clinical: Right lower quadrant pain.; ; Technique: Axial contrast enhanced images from the lung bases to the pubic; symphysis using 100 ml Isovue 370 intravenous contrast material with coronal and; sagittal re-formations.; ; Findings:; Lung bases clear. Visualized heart and pericardium normal.; ; Liver, spleen, pancreas, gallbladder, bilateral adrenal glands and kidneys are; normal. The enteric system demonstrates a mild prominence to the small bowel; which may reflect acute enteritis. There is no evidence for bowel obstruction; and a normal terminal ileum and appendix are identified in the right lower; quadrant. Pelvis demonstrates normal bladder and the age-appropriate; uterus/adnexa. No pelvic fluid or ascites. No free air. No adenopathy.; Vasculature normal. Surrounding musculoskeletal structures are intact.; ; Impression:; No evidence for acute appendicitis.; Possible enteritis.; ; ; Signed by; Duncan Couch MD 11/17/2016 05:07 P; Outcome: 17:24 Discharge ordered by Provider. nish 17:37 Discharge Assessment: Patient awake, alert and oriented x 3. No cognitive and/or jmb functional deficits noted. Patient verbalized understanding of disposition instructions. Patient awake and alert. obeys commands, Oriented to person, place and time. Patient verbalized understanding of disposition instructions. Patient has no functional deficits. patient administered narcotics - no. The following High Risk Discharge criteria are identified: None. Discharged to home ambulatory, with significant other. Condition: stable. Discharge instructions given to patient, Instructed on discharge instructions, follow up and referral plans. medication usage, Demonstrated understanding of instructions, medications, Pt was receptive of discharge instructions/ teaching. Prescriptions given X 3. CT Study completed. Property sent home with patient. 17:40 Patient left the ED. marcus Signatures: Dispatcher [employer] EDMS Mirta Wynn, RN RN Jennifer Lawrence, DATA PROCESSOR DATA PROCESSOR jam1 Barbara Arce, Reg Reg gb Marques Ying, EMPLOYMENT CONSULTANT EMPLOYMENT CONSULTANT Viji Genao,RN RN kr3 Ofe Jeong Daniell, DATA PROCESSOR DATA PROCESSOR dd6 Chaparrita Mckeon, PAMarcus PA-Cliff ef1 Trish Talley, RN RN hs1 José Antonio MeléndezRN RN Vikki Johnson RN RN ms18 Deena Gaines, DATA PROCESSOR DATA PROCESSOR rs6 Chart Complete SRI
--- NOTE | 2016-11-19 18:42 | EDDOCDS ---
Physician Documentation [facility] Name: Kirstie Osborne Age: 21 yrs Sex: Female : 1995 Arrival Date: 11/17/2016 Time: 14:19 Bed I5 / M5 Private MD: [facility] Disposition: 11/17/16 17:24 Discharged to Home/Self Care. Impression: Urinary tract infection, site not specified, Abdominal and pelvic pain. - Condition is Stable. - Discharge Instructions: Abdominal Pain, Adult. - Prescriptions for Cipro 500 mg Oral Tablet - take 1 tablet by ORAL route every 12 hours; 14 tablet. Pyridium 200 mg Oral Tablet - take 1 tablet by ORAL route every 8 hours for 3 days; 9 tablet. Zofran 4 mg Oral Tablet - take 1 tablet by ORAL route 4 times per day As needed; 10 tablet. - Medication Reconciliation, Local Pharmacy Hours form. - Follow up: [facility]; When: As needed; Reason: Continuance of care. - Problem is an ongoing problem. - Symptoms are unchanged. Historical: - Allergies: No known drug Allergies; - Home Meds: 1. levothyroxine 175 mcg Oral tab 1 tab once daily 2. Zofran (as hydrochloride) 4 mg Oral tab (Last dose: 11/17/2016 13:30) 3. Ortho Tri-Cyclen (28) 0.18/0.215/0.25 mg-35 mcg (28) Oral tab 1 tab once daily - PMHx: Hypothyroidism; - PSHx: none; - Social history: Smoking status: Patient states was never smoker of tobacco. No barriers to communication noted, The patient speaks fluent Israeli, Speaks appropriately for age. - Family history: Not pertinent. - : The pt / caregiver states he / she is not on anticoagulants. Home medication list is obtained from the patient. - Exposure Risk Screening:: None identified. CONTACT CENTER ENGINEER: 11/17 14:29 LMP 11/08/2016 hs1 Vital Signs: 14:21 BP 115 / 73; Pulse 94; Resp 18 S; Temp 97.5(O); Pulse Ox 100% on R/A; Weight 99.79 kg / dd6 220 lbs (R); Height 68 in. (172.72 cm) (R); 17:37 BP 110 / 70; Pulse 80; Resp 18; Temp 97.0(O); Pulse Ox 100% on R/A; Pain 0/10; jmb 14:21 Body Mass Index 33.45 (99.79 kg, 172.72 cm) dd6 MDM: 14:35 NS 0.9% 1000 ml IV at bolus once ordered. ef1 14:35 Ondansetron 4 mg IVP once ordered. ef1 14:35 ketorolac 30 mg IVP once ordered. ef1 14:35 IV Saline Lock ordered. ef1 14:35 Undress patient appropriately for examination ordered. ef1 14:35 UCG by Nursing ordered. ef1 14:36 Amylase Ordered. EDMS 14:36 Basic Metabolic Profile Ordered. EDMS 14:36 CBC with Diff Ordered. EDMS 14:36 Lipase Ordered. EDMS 14:36 Liver Profile Ordered. EDMS 14:36 Urinalysis Ordered. EDMS 14:36 Urine Culture Ordered. EDMS 14:36 CT ABD & PELVIS: IV Contrast Only Ordered. EDMS 14:36 NOTHING BY MOUTH+DIET ordered. EDMS 15:10 CBC with Diff Reviewed. ef1 15:21 Urinalysis Reviewed. ef1 15:42 Financial registration complete. zo 15:50 [facility] Payment Agreement was scanned into [employer] and attached to record. zo 16:11 Basic Metabolic Profile Reviewed. ke 16:11 Lipase Reviewed. ke 16:11 Amylase Reviewed. ke 16:11 Liver Profile Reviewed. ke 17:25 Ciprofloxacin 500 mg PO once ordered. ke 17:25 Phenazopyridine 200 mg PO once ordered. ke 11/18 10:08 T-Sheet-- Draft Copy was scanned into [employer] and attached to record. gb Point of Care Testing: Urine : 11/17 14:48 hCG Reading: Negative; Control Reading: Positive; ms18 Ranges: Administered Medications: 14:52 Drug: NS 0.9% 1000 ml [sodium chloride 0.9 % intravenous solution] Route: IV; Rate: mcp bolus; Site: left hand; 14:52 Drug: Ondansetron 4 mg [ondansetron HCl 2 mg/mL intravenous solution (2 mL)] Route: mcp IVP; Site: left hand; 14:52 Drug: ketorolac 30 mg [ketorolac 30 mg/mL (1 mL) injection solution (1 mL)] Route: IVP; mcp Site: left hand; 17:25 Drug: Ciprofloxacin 500 mg [ciprofloxacin 500 mg tablet (1 tabs)] Route: PO; marcus 17:25 Drug: Phenazopyridine 200 mg [phenazopyridine 100 mg tablet (2 tabs)] Route: PO; marcus Signatures: Dispatcher [employer] EDMS Barbara Arce, Tucker Reg gb Marques Ying, PAPER STACKER PAPER STACKER Ofe Short Erica, PA-C PAMarcus ef1 Trish Talley RN RN hs1 José Antonio Meléndez RN RN Mirta Dick RN [facility] The chart was reviewed and I authenticate all verbal orders and agree with the evaluation and treatment provided.Attachments: 15:50 [facility] Payment Agreement zo 11/18 10:08 T-Sheet-- Draft Copy gb Chart Complete MTDD
--- NOTE | 2016-11-20 10:12 | EDDOCDS ---
Physician Documentation [facility] Name: Kirstie Osborne Age: 21 yrs Sex: Female : 1995 Arrival Date: 11/17/2016 Time: 14:19 Bed I5 / M5 Private MD: [facility] Disposition: 11/17/16 17:24 Discharged to Home/Self Care. Impression: Urinary tract infection, site not specified, Abdominal and pelvic pain. - Condition is Stable. - Discharge Instructions: Abdominal Pain, Adult. - Prescriptions for Cipro 500 mg Oral Tablet - take 1 tablet by ORAL route every 12 hours; 14 tablet. Pyridium 200 mg Oral Tablet - take 1 tablet by ORAL route every 8 hours for 3 days; 9 tablet. Zofran 4 mg Oral Tablet - take 1 tablet by ORAL route 4 times per day As needed; 10 tablet. - Medication Reconciliation, Local Pharmacy Hours form. - Follow up: [facility]; When: As needed; Reason: Continuance of care. - Problem is an ongoing problem. - Symptoms are unchanged. Historical: - Allergies: No known drug Allergies; - Home Meds: 1. levothyroxine 175 mcg Oral tab 1 tab once daily 2. Zofran (as hydrochloride) 4 mg Oral tab (Last dose: 11/17/2016 13:30) 3. Ortho Tri-Cyclen (28) 0.18/0.215/0.25 mg-35 mcg (28) Oral tab 1 tab once daily - PMHx: Hypothyroidism; - PSHx: none; - Social history: Smoking status: Patient states was never smoker of tobacco. No barriers to communication noted, The patient speaks fluent Nauruan, Speaks appropriately for age. - Family history: Not pertinent. - : The pt / caregiver states he / she is not on anticoagulants. Home medication list is obtained from the patient. - Exposure Risk Screening:: None identified. 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 (172.72 cm) (R); 17:37 BP 110 / 70; Pulse 80; Resp 18; Temp 97.0(O); Pulse Ox 100% on R/A; Pain 0/10; jmb 14:21 Body Mass Index 33.45 (99.79 kg, 172.72 cm) dd6 MDM: 14:35 NS 0.9% 1000 ml IV at bolus once ordered. ef1 14:35 Ondansetron 4 mg IVP once ordered. ef1 14:35 ketorolac 30 mg IVP once ordered. ef1 14:35 IV Saline Lock ordered. ef1 14:35 Undress patient appropriately for examination ordered. ef1 14:35 UCG by Nursing ordered. ef1 14:36 Amylase Ordered. EDMS 14:36 Basic Metabolic Profile Ordered. EDMS 14:36 CBC with Diff Ordered. EDMS 14:36 Lipase Ordered. EDMS 14:36 Liver Profile Ordered. EDMS 14:36 Urinalysis Ordered. EDMS 14:36 Urine Culture Ordered. EDMS 14:36 CT ABD & PELVIS: IV Contrast Only Ordered. EDMS 14:36 NOTHING BY MOUTH+DIET ordered. EDMS 15:10 CBC with Diff Reviewed. ef1 15:21 Urinalysis Reviewed. ef1 15:42 Financial registration complete. zo 15:50 [facility] Payment Agreement was scanned into Generate and attached to record. zo 16:11 Basic Metabolic Profile Reviewed. ke 16:11 Lipase Reviewed. ke 16:11 Amylase Reviewed. ke 16:11 Liver Profile Reviewed. ke 17:25 Ciprofloxacin 500 mg PO once ordered. ke 17:25 Phenazopyridine 200 mg PO once ordered. ke 11/18 10:08 T-Sheet-- Draft Copy was scanned into Generate and attached to record. gb Point of Care Testing: Urine : 11/17 14:48 hCG Reading: Negative; Control Reading: Positive; ms18 Ranges: Administered Medications: 14:52 Drug: NS 0.9% 1000 ml [sodium chloride 0.9 % intravenous solution] Route: IV; Rate: mcp bolus; Site: left hand; 14:52 Drug: Ondansetron 4 mg [ondansetron HCl 2 mg/mL intravenous solution (2 mL)] Route: mcp IVP; Site: left hand; 14:52 Drug: ketorolac 30 mg [ketorolac 30 mg/mL (1 mL) injection solution (1 mL)] Route: IVP; mcp Site: left hand; 17:25 Drug: Ciprofloxacin 500 mg [ciprofloxacin 500 mg tablet (1 tabs)] Route: PO; marcus 17:25 Drug: Phenazopyridine 200 mg [phenazopyridine 100 mg tablet (2 tabs)] Route: PO; marcus Signatures: Dispatcher [employer] EDMS RiccardoBarbara mujica, Tucker Reg gb Marques Ying, TAKE OUT WAITER/WAITRESS TAKE OUT WAITER/WAITRESS Ofe Short Erica, PA-C [facility]AM[facility] ef1 Trish Talley RN RN hs1 José Antonio Meléndez RN RN Mirta Dick RN [facility] The chart was reviewed and I authenticate all verbal orders and agree with the evaluation and treatment provided.Attachments: 15:50 [facility] Payment Agreement zo 11/18 10:08 T-Sheet-- Draft Copy gb [facility]
--- NOTE | 2016-11-20 10:12 | EDDOCDS ---
Physician Documentation [facility] Name: Kirstie Osborne Age: 21 yrs Sex: Female : 1995 Arrival Date: 11/17/2016 Time: 14:19 Bed I5 / M5 Private MD: [facility] Disposition: 11/17/16 17:24 Discharged to Home/Self Care. Impression: Urinary tract infection, site not specified, Abdominal and pelvic pain. - Condition is Stable. - Discharge Instructions: Abdominal Pain, Adult. - Prescriptions for Cipro 500 mg Oral Tablet - take 1 tablet by ORAL route every 12 hours; 14 tablet. Pyridium 200 mg Oral Tablet - take 1 tablet by ORAL route every 8 hours for 3 days; 9 tablet. Zofran 4 mg Oral Tablet - take 1 tablet by ORAL route 4 times per day As needed; 10 tablet. - Medication Reconciliation, Local Pharmacy Hours form. - Follow up: [facility]; When: As needed; Reason: Continuance of care. - Problem is an ongoing problem. - Symptoms are unchanged. Historical: - Allergies: No known drug Allergies; - Home Meds: 1. levothyroxine 175 mcg Oral tab 1 tab once daily 2. Zofran (as hydrochloride) 4 mg Oral tab (Last dose: 11/17/2016 13:30) 3. Ortho Tri-Cyclen (28) 0.18/0.215/0.25 mg-35 mcg (28) Oral tab 1 tab once daily - PMHx: Hypothyroidism; - PSHx: none; - Social history: Smoking status: Patient states was never smoker of tobacco. No barriers to communication noted, The patient speaks fluent Eritrean, Speaks appropriately for age. - Family history: Not pertinent. - : The pt / caregiver states he / she is not on anticoagulants. Home medication list is obtained from the patient. - Exposure Risk Screening:: None identified. 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 (172.72 cm) (R); 17:37 BP 110 / 70; Pulse 80; Resp 18; Temp 97.0(O); Pulse Ox 100% on R/A; Pain 0/10; jmb 14:21 Body Mass Index 33.45 (99.79 kg, 172.72 cm) dd6 MDM: 14:35 NS 0.9% 1000 ml IV at bolus once ordered. ef1 14:35 Ondansetron 4 mg IVP once ordered. ef1 14:35 ketorolac 30 mg IVP once ordered. ef1 14:35 IV Saline Lock ordered. ef1 14:35 Undress patient appropriately for examination ordered. ef1 14:35 UCG by Nursing ordered. ef1 14:36 Amylase Ordered. EDMS 14:36 Basic Metabolic Profile Ordered. EDMS 14:36 CBC with Diff Ordered. EDMS 14:36 Lipase Ordered. EDMS 14:36 Liver Profile Ordered. EDMS 14:36 Urinalysis Ordered. EDMS 14:36 Urine Culture Ordered. EDMS 14:36 CT ABD & PELVIS: IV Contrast Only Ordered. EDMS 14:36 NOTHING BY MOUTH+DIET ordered. EDMS 15:10 CBC with Diff Reviewed. ef1 15:21 Urinalysis Reviewed. ef1 15:42 Financial registration complete. zo 15:50 [facility] [place] Agreement was scanned into CO Everywhere and attached to record. zo 16:11 Basic Metabolic Profile Reviewed. ke 16:11 Lipase Reviewed. ke 16:11 Amylase Reviewed. ke 16:11 Liver Profile Reviewed. ke 17:25 Ciprofloxacin 500 mg PO once ordered. ke 17:25 Phenazopyridine 200 mg PO once ordered. ke 11/18 10:08 T-Sheet-- Draft Copy was scanned into CO Everywhere and attached to record. gb Point of Care Testing: Urine : 11/17 14:48 hCG Reading: Negative; Control Reading: Positive; ms18 Ranges: Administered Medications: 14:52 Drug: NS 0.9% 1000 ml [sodium chloride 0.9 % intravenous solution] Route: IV; Rate: mcp bolus; Site: left hand; 14:52 Drug: Ondansetron 4 mg [ondansetron HCl 2 mg/mL intravenous solution (2 mL)] Route: mcp IVP; Site: left hand; 14:52 Drug: ketorolac 30 mg [ketorolac 30 mg/mL (1 mL) injection solution (1 mL)] Route: IVP; mcp Site: left hand; 17:25 Drug: Ciprofloxacin 500 mg [ciprofloxacin 500 mg tablet (1 tabs)] Route: PO; marcus 17:25 Drug: Phenazopyridine 200 mg [phenazopyridine 100 mg tablet (2 tabs)] Route: PO; marcus Signatures: Dispatcher [employer] EDMS RiccardoBarbara mujica, Tucker Reg gb Marques Ying, BUILDING MAINTENANCE TECHNICIAN BUILDING MAINTENANCE TECHNICIAN Ofe Short Erica, PA-C PAMarcus ef1 Trish Talley RN RN hs1 José Antonio Meléndez RN RN Mirta Dick RN [facility] The chart was reviewed and I authenticate all verbal orders and agree with the evaluation and treatment provided.Attachments: 15:50 [facility] Payment Agreement zo 11/18 10:08 T-Sheet-- Draft Copy gb [facility]
--- NOTE | 2016-11-20 10:13 | EDDOCDS ---
Nurse's Notes [facility] Name: Kirstie Osborne Age: 21 yrs Sex: Female : 1995 Arrival Date: 11/17/2016 Time: 14:19 Bed I5 / M5 [facility] Diagnosis: Urinary tract infection, site not specified;Abdominal and pelvic pain Presentation: 11/17 14:23 Presenting complaint: Patient states: severe abdominal button since early this morning. hs1 Patient states nauseated and vomited x1. Patient sent from [facility] for evaluation. Pt states pain woke her up from sleep on and off throughout the night. Risk factors: the patient reports no vaginal bleeding. Adult Sepsis Screening: The patient does not have new or worsening altered mentation. Patient's respiratory rate is less than 22. Systolic blood pressure is greater than 100. Patient has a qSOFA score of 0- Negative Sepsis Screen. Suicide/Homicide risk assessment- the patient denies having any suicidal and/or homicidal ideations and does not present with any other emotional, behavioral or mental health complaints. 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 Transition of care: patient was not received from another setting of care. 14:23 Acuity: RITA Level 3 hs1 14:23 Method Of Arrival: Walkin/Carried/Asstd hs1 Triage Assessment: 14:28 General: Appears in no apparent distress, Behavior is appropriate for age, cooperative. hs1 Pain: Location: abdomen Pain currently is 5 out of 10 on a pain scale. HIV screening NA for this visit active duty . GI: Abdomen is non- distended Reports bloating, diarrhea, nausea, vomiting. 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 levothyroxine 175 mcg Oral tab 1 tab once daily 2. Zofran (as hydrochloride) 4 mg Oral tab (Last dose: 11/17/2016 13:30) 3. Ortho Tri-Cyclen (28) 0.18/0.215/0.25 mg-35 mcg (28) Oral tab 1 tab once daily - PMHx: Hypothyroidism; - PSHx: none; - Social history: Smoking status: Patient states was never smoker of tobacco. No barriers to communication noted, The patient speaks fluent Georgian, Speaks appropriately for age. - Family history: Not pertinent. - : The pt / caregiver states he / she is not on anticoagulants. Home medication list is obtained from the patient. - Exposure Risk Screening:: None identified. Screenin:53 Screening information is obtained from the patient. Fall risk: No risks identified. kr3 Assistance ADL's: requires no assistance with activities of daily living. Abuse/DV Screen: The patient / caregiver reports he/she is: not in a situation that causes fear, pain or injury. Nutritional screening: No deficits noted. Advance Directives: Currently, there is no health care proxy. home support is adequate. Assessment: 14:52 General: Appears in no apparent distress, comfortable, Behavior is cooperative. Pain: kr3 Location: right upper quadrant and left upper quadrant Pain currently is 5 out of 10 on a pain scale. Neurological: Level of Consciousness is awake, alert. Respiratory: Respiratory effort is even, unlabored. GI: Abdomen is non- distended Bowel sounds present X 4 quads. Abd is soft and non tender X 4 quads. GI: Reports nausea, vomiting, had loose bowel movement this AM. Derm: Skin is normal. 15:49 General: Appears in no apparent distress, comfortable, Behavior is appropriate for age, jmb cooperative, Patient laying on stretcher with friends at bedside. NO voiced complaints at this time. . Neurological: Level of Consciousness is awake, alert, obeys commands, Oriented to person, place, time. Respiratory: Airway is patent Respiratory effort is even, unlabored, Respiratory pattern is regular, symmetrical. 16:41 General: Appears in no apparent distress, comfortable, Behavior is appropriate for age, jmb cooperative. Neurological: Level of Consciousness is awake, alert, obeys commands, Oriented to person, place, time. Respiratory: Airway is patent Respiratory effort is even, unlabored, Respiratory pattern is regular, symmetrical. 17:37 General: Patient instructed on discharge instructions. Patient asked if there were any b questions regarding discharge, patient stated no. IV discontinued per hospital policy. Patient signed discharge instructions. Patient discharged in stable condition. . Vital Signs: 14:21 BP 115 / 73; Pulse 94; Resp 18 S; Temp 97.5(O); Pulse Ox 100% on R/A; Weight 99.79 kg dd6 (R); Height 68 in. (172.72 cm) (R); 17:37 BP 110 / 70; Pulse 80; Resp 18; Temp 97.0(O); Pulse Ox 100% on R/A; Pain 0/10; jmb 14:21 Body Mass Index 33.45 (99.79 kg, 172.72 cm) dd6 Vitals: 14:21 Log In Time: November 17, 2016 at 14:19. dd6 ED Course: 14:20 Patient visited by Primitivo Eugene PCA. dd6 14:20 Patient moved to Waiting dd6 14:21 [facility]. dd6 14:22 Chaparrita Mckeon [facility]-C [facility] ef1 14:22 Patient moved to Pre RCE dd6 14:23 Marga Torres MD is Attending Physician. ef1 14:26 Triage Initiated hs1 14:28 Patient moved to Triage 1 ms18 14:29 Patient visited by Chaparrita Mckeon PA-C. ef1 14:36 Patient moved to I5 / M5 rs6 14:42 Pt greeted and oriented to ED. Patient advised of names of staff involved in care, jam1 location of call laws, wait times and NPO status. Patient has correct armband on for positive identification. Placed in gown. Bed in low position. Call light in reach. Side rails up X 1. Door closed. 14:51 Amylase Sent. kr3 14:51 Basic Metabolic Profile Sent. kr3 14:51 CBC with Diff Sent. kr3 14:51 Lipase Sent. kr3 14:51 Liver Profile Sent. kr3 14:51 Urinalysis Sent. kr3 14:52 Urine Culture Sent. kr3 14:53 The patient / caregiver is instructed regarding the plan of care and ED course. kr3 Accompanied by Friend, Patient has correct armband on for positive identification. Placed in gown. Bed in low position. Call light in reach. Side rails up X 1. 14:53 Inserted saline lock: 20 gauge in left hand and blood collected. The patient tolerated kr3 the procedure well. 15:10 Patient visited by Chaparrita Mckeon PA-C. ef1 15:45 Patient visited by Chaparrita Mckeon PA-C. ef1 15:49 Patient visited by José Antonio Meléndez RN. jmb 15:50 [facility] Payment Agreement was scanned into [employer] and attached to record. zo 15:52 PHCP role handed off by Chaparrita Mckeon PA-C ke 15:52 Marques Ying FNP is PHCP. ke 15:52 Patient visited by Marques Ying FNP. ke 16:19 Patient visited by Marques Ying FNP. ke 16:41 Patient visited by José Antonio Meléndez RN. janieb 17:05 Patient has correct armband on for positive identification. Bed in low position. Call jam1 light in reach. Side rails up X 1. Door closed. 17:11 Patient visited by Marques Ying FNP. ke 17:23 [facility] is Referral Physician. ke 17:37 Discontinued lock intact, bleeding controlled, pressure dressing applied, No jmb redness/swelling at site. No procedures done that require assistance. 18:18 CT ABD & PELVIS: IV Contrast Only Returned. EDMS 11/18 10:08 T-Sheet-- Draft Copy was scanned into [employer] and attached to record. gb Administered Medications: 11/17 14:52 Drug: NS 0.9% 1000 ml [sodium chloride 0.9 % intravenous solution] Route: IV; Rate: mcp bolus; Site: left hand; 14:52 Drug: Ondansetron 4 mg [ondansetron HCl 2 mg/mL intravenous solution (2 mL)] Route: mcp IVP; Site: left hand; 14:52 Drug: ketorolac 30 mg [ketorolac 30 mg/mL (1 mL) injection solution (1 mL)] Route: IVP; mcp Site: left hand; 17:25 Drug: Ciprofloxacin 500 mg [ciprofloxacin 500 mg tablet (1 tabs)] Route: PO; marcus 17:25 Drug: Phenazopyridine 200 mg [phenazopyridine 100 mg tablet (2 tabs)] Route: PO; marcus Point of Care Testing: Urine : 14:48 hCG Reading: Negative; Control Reading: Positive; ms18 Ranges: Order Results: Lab Order: Amylase; SPEC'M 11/17/16 15:33 Test: AMYLASE; Value: 53; Range: 25-115; Units: U/L; Status: F Lab Order: Basic Metabolic Profile; SPEC'M 11/17/16 15:33 Test: GLUCOSE, FASTING; Value: 110; Range: 70-105; Abnormal: Above high normal; Units: MG/DL; Status: F Test: BLOOD UREA NITROGEN; Value: 21; Range: 7-18; Abnormal: Above high normal; Units: MG/DL; Status: F Test: CREATININE FOR GFR; Value: 0.86; Range: 0.55-1.02; Units: MG/DL; Status: F Test: GLOMERULAR FILTRATION RATE; Value: > 60.0; Range: >60; Status: F Test: SODIUM LEVEL; Value: 142; Range: 136-145; Units: MEQ/L; Status: F Test: POTASSIUM SERUM; Value: 4.0; Range: 3.5-5.1; Units: MEQ/L; Status: F Test: CHLORIDE LEVEL; Value: 108; Range: 98-107; Abnormal: Above high normal; Units: MEQ/L; Status: F Test: CARBON DIOXIDE LEVEL; Value: 26; Range: 21-32; Units: MEQ/L; Status: F Test: ANION GAP; Value: 8; Range: 8-16; Units: MEQ/L; Status: F Test: CALCIUM LEVEL; Value: 8.2; Range: 8.5-10.1; Abnormal: Below low normal; Units: MG/DL; Status: F Test Note: ; Units are mL/min/1.73 m2 Chronic Kidney Disease Staging per NKF: Stage I & II GFR >=60 Normal to Mildly Decreased Stage III GFR 30-59 Moderately Decreased Stage IV GFR 15-29 Severely Decreased Stage V GFR <15 Very Little GFR Left ESRD GFR <15 on INVENTORY PLANNER Lab Order: CBC with Diff; SPEC'M 11/17/16 14:50 Test: WHITE BLOOD COUNT; Value: 8.7; Range: 4.0-10.0; Units: K/mm3; Status: F Test: RED BLOOD COUNT; Value: 5.09; Range: 4.00-5.40; Units: M/mm3; Status: F Test: HEMOGLOBIN; Value: 14.9; Range: 12.0-16.0; Units: g/dl; Status: F Test: HEMATOCRIT; Value: 44.0; Range: 36.0-47.0; Units: %; Status: F Test: MEAN CORPUSCULAR VOLUME; Value: 86.4; Range: 80.0-96.0; Units: fl; Status: F Test: MEAN CORPUSCULAR HEMOGLOBIN; Value: 29.2; Range: 27.0-33.0; Units: pg; Status: F Test: MEAN CORPUSCULAR HGB CONC; Value: 33.8; Range: 32.0-36.5; Units: g/dl; Status: F Test: RED CELL DISTRIBUTION WIDTH; Value: 12.8; Range: 11.5-14.5; Units: %; Status: F Test: PLATELET COUNT, AUTOMATED; Value: 216; Range: 150-450; Units: k/mm3; Status: F Test: NEUTROPHILS %; Value: 79.1; Range: 36.0-66.0; Abnormal: Above high normal; Units: %; Status: F Test: LYMPH %; Value: 14.1; Range: 24.0-44.0; Abnormal: Below low normal; Units: %; Status: F Test: MONO %; Value: 2.9; Range: 0.0-5.0; Units: %; Status: F Test: EOS %; Value: 2.5; Range: 0.0-3.0; Units: %; Status: F Test: BASO %; Value: 0.3; Range: 0.0-1.0; Units: %; Status: F Test: LARGE UNSTAINED CELL %; Value: 1.2; Range: 0.0-4.0; Units: %; Status: F Test: NEUTROPHILS #; Value: 6.9; Range: 1.8-7.7; Units: K/mm3; Status: F Test: LYMPH #; Value: 1.2; Range: 1.5-6.5; Abnormal: Below low normal; Units: K/mm3; Status: F Test: MONO #; Value: 0.3; Range: 0.0-0.8; Units: K/mm3; Status: F Test: EOS #; Value: 0.2; Range: 0.0-0.50; Units: K/mm3; Status: F Test: BASO #; Value: 0.0; Range: 0.0-0.2; Units: K/mm3; Status: F Test: LARGE UNSTAINED CELL #; Value: 0.1; Range: 0.0-0.4; Units: K/mm3; Status: F Lab Order: Lipase; SPEC'M 11/17/16 15:33 Test: LIPASE; Value: 66; Range: 73-393; Abnormal: Below low normal; Units: U/L; Status: F Lab Order: Liver Profile; SPEC'M 11/17/16 15:33 Test: AST/SGOT; Value: 17; Range: 15-37; Units: U/L; Status: F Test: ALT/SGPT; Value: 27; Range: 12-78; Units: U/L; Status: F Test: ALKALINE PHOSPHATASE; Value: 91; Range: 45-117; Units: U/L; Status: F Test: BILIRUBIN,TOTAL; Value: 0.6; Range: 0.2-1.0; Units: MG/DL; Status: F Test: BILIRUBIN,DIRECT; Value: 0.1; Range: 0.0-0.2; Units: MG/DL; Status: F Test: TOTAL PROTEIN; Value: 6.9; Range: 6.4-8.2; Units: GM/DL; Status: F Test: ALBUMIN; Value: 3.7; Range: 3.2-5.2; Units: GM/DL; Status: F Test: ALBUMIN/GLOBULIN RATIO; Value: 1.16; Range: 1.00-1.93; Status: F Lab Order: Urinalysis; SPEC'M 11/17/16 14:39 Test: APPEARANCE, URINE; Value: HAZY; Range: CLEAR; Status: F Test: COLOR, URINE; Value: YELLOW; Range: YELLOW; Status: F Test: PH,URINE; Value: 5.0; Range: 5.0-9.0; Units: UNITS; Status: F Test: SPECIFIC GRAVITY URINE AUTO; Value: 1.032; Range: 1.002-1.035; Status: F Test: PROTEIN, URINE AUTO; Value: 1+; Range: NEGATIVE; Abnormal: Above high normal; Units: mg/dL; Status: F Test: GLUCOSE, URINE (UA) AUTO; Value: NEGATIVE; Range: NEGATIVE; Units: mg/dL; Status: F Test: KETONE, URINE AUTO; Value: NEGATIVE; Range: NEGATIVE; Units: mg/dL; Status: F Test: UROBILINOGEN, URINE AUTO; Value: 0.2; Range: 0.0-2.0; Units: mg/dL; Status: F Test: BILIRUBIN, URINE AUTO; Value: NEGATIVE; Range: NEGATIVE; Status: F Test: NITRITE, URINE AUTO; Value: NEGATIVE; Range: NEGATIVE; Status: F Test: LEUKOCYTE ESTERASE, URINE AUTO; Value: 3+; Range: NEGATIVE; Abnormal: Above high normal; Status: F Test: BLOOD, URINE BLOOD; Value: NEGATIVE; Range: NEGATIVE; Status: F Test: WBC, URINE AUTO; Value: 51; Range: 0-3; Abnormal: Above high normal; Units: /HPF; Status: F Test: RBC, URINE AUTO; Value: 7; Range: 0-3; Abnormal: Above high normal; Units: /HPF; Status: F Test: BACTERIA, URINE AUTO; Value: 1+; Range: NEGATIVE; Abnormal: Above high normal; Status: F Test: SQUAMOUS EPITHELIAL CELL UR AU; Value: 6; Range: 0-6; Units: /HPF; Status: F Test: MUCUS, URINE; Value: SMALL; Range: NEGATIVE; Status: F Test: HYALINE CAST, URINE AUTO; Value: 0; Range: 0-1; Units: /LPF; Status: F Lab Order: Urine Culture; SPEC'M 11/17/16 14:39 Test: URINE CULTURE; Value: ORGANISM 1: ESCHERICHIA COLI; Status: F Test: URINE CULTURE; Value: ESCHERICHIA COLI; Status: F Test: URINE CULTURE; Value: COLONY COUNT CFU/ml 80,000; Status: F Test: URINE CULTURE; Value: GRAM NEG SENSI - VITEK 80; Status: F Test: URINE CULTURE; Value: Method: VIT2; Status: F Test: URINE CULTURE; Value: EXTD BRD SPCTRM BETA LACTAMASE -; Status: F Test: URINE CULTURE; Value: TRIMETHOPRIM/SULFAMETHOXAZOLE >=320 R; Status: F Test: URINE CULTURE; Value: AMPICILLIN >=32 R; Status: F Test: URINE CULTURE; Value: GENTAMICIN <=1 S; Status: F Test: URINE CULTURE; Value: NITROFURANTOIN <=16 S; Status: F Test: URINE CULTURE; Value: CEFAZOLIN <=4 S; Status: F Test: URINE CULTURE; Value: LEVOFLOXACIN <=0.12 S; Status: F Test: URINE CULTURE; Value: TOBRAMYCIN <=1 S; Status: F Test: URINE CULTURE; Value: CEFTRIAXONE <=1 S; Status: F Test: URINE CULTURE; Value: CEFTAZIDIME <=1 S; Status: F Test: URINE CULTURE; Value: AMPICILLIN/SULBACTAM >=32 R; Status: F Test: URINE CULTURE; Value: PIPERACILLIN/TAZOBACTAM <=4 S; Status: F Test: URINE CULTURE; Value: AZTREONAM <=1 S; Status: F Test: URINE CULTURE; Value: ERTAPENEM <=0.5 S; Status: F Test: URINE CULTURE; Value: MEROPENEM <=0.25 S; Status: F Test: URINE CULTURE; Value: TIGECYCLINE <=0.5 S; Status: F Test: URINE CULTURE; Value: CEFEPIME <=1 S; Status: F Radiology Order: CT ABD & PELVIS: IV Contrast Only Test: CT ABD & PELVIS: IV Contrast Only REASON FOR EXAMINATION: Appendicitis; Clinical: Right lower quadrant pain.; ; Technique: Axial contrast enhanced images from the lung bases to the pubic; symphysis using 100 ml Isovue 370 intravenous contrast material with coronal and; sagittal re-formations.; ; Findings:; Lung bases clear. Visualized heart and pericardium normal.; ; Liver, spleen, pancreas, gallbladder, bilateral adrenal glands and kidneys are; normal. The enteric system demonstrates a mild prominence to the small bowel; which may reflect acute enteritis. There is no evidence for bowel obstruction; and a normal terminal ileum and appendix are identified in the right lower; quadrant. Pelvis demonstrates normal bladder and the age-appropriate; uterus/adnexa. No pelvic fluid or ascites. No free air. No adenopathy.; Vasculature normal. Surrounding musculoskeletal structures are intact.; ; Impression:; No evidence for acute appendicitis.; Possible enteritis.; ; ; Signed by; Duncan Couch MD 11/17/2016 05:07 P; Outcome: 17:24 Discharge ordered by Provider. nish 17:37 Discharge Assessment: Patient awake, alert and oriented x 3. No cognitive and/or jmb functional deficits noted. Patient verbalized understanding of disposition instructions. Patient awake and alert. obeys commands, Oriented to person, place and time. Patient verbalized understanding of disposition instructions. Patient has no functional deficits. patient administered narcotics - no. The following High Risk Discharge criteria are identified: None. Discharged to home ambulatory, with significant other. Condition: stable. Discharge instructions given to patient, Instructed on discharge instructions, follow up and referral plans. medication usage, Demonstrated understanding of instructions, medications, Pt was receptive of discharge instructions/ teaching. Prescriptions given X 3. CT Study completed. Property sent home with patient. 17:40 Patient left the ED. tatiana Addendum: 11/20/2016 10:10 Narrative: Urine culture report received and reviewed by Dr. Torres. No new jc4 orders received. Signatures: Dispatcher [employer] EDMS Mirta Wynn, RN RN Jennifer Lawrence, CORRAL BOSS CORRAL BOSS jam1 Barbara Arce, Tucker Reg gb Marques Ying, WEARING APPAREL SHAKER WEARING APPAREL SHAKER Viji Genao,RN RN kr3 Ofe Jeong Daniell, CORRAL BOSS CORRAL BOSS dd6 Chaparrita Mckeon, PA-C PA-C ef1 Trish Talley, RN RN hs1 Hue Maria RN RN jc4 José Antonio Meléndez RN RN Vikki Johnson RN RN ms18 Deena Gaines, CORRAL BOSS CORRAL BOSS rs6 [id number]
--- NOTE | 2016-11-20 10:13 | EDDOCDS ---
Nurse's Notes Name: Kirstie Osborne Age: 21 yrs Sex: Female : 1995 Arrival Date: 11/17/2016 Time: 14:19 Bed I5 / M5 [facility] Diagnosis: Urinary tract infection, site not specified;Abdominal and pelvic pain Presentation: 11/17 14:23 Presenting complaint: Patient states: severe abdominal button since early this morning. hs1 Patient states nauseated and vomited x1. Patient sent from [facility] for evaluation. Pt states pain woke her up from sleep on and off throughout the night. Risk factors: the patient reports no vaginal bleeding. Adult Sepsis Screening: The patient does not have new or worsening altered mentation. Patient's respiratory rate is less than 22. Systolic blood pressure is greater than 100. Patient has a qSOFA score of 0- Negative Sepsis Screen. Suicide/Homicide risk assessment- the patient denies having any suicidal and/or homicidal ideations and does not present with any other emotional, behavioral or mental health complaints. 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 Transition of care: patient was not received from another setting of care. 14:23 Acuity: RITA Level 3 hs1 14:23 Method Of Arrival: Walkin/Carried/Asstd hs1 Triage Assessment: 14:28 General: Appears in no apparent distress, Behavior is appropriate for age, cooperative. hs1 Pain: Location: abdomen Pain currently is 5 out of 10 on a pain scale. HIV screening NA for this visit active duty . GI: Abdomen is non- distended Reports bloating, diarrhea, nausea, vomiting. MATHEMATICIAN: 14:29 LMP 11/08/2016 hs1 Historical: - Allergies: No known drug Allergies; - Home Meds: 1. levothyroxine 175 mcg Oral tab 1 tab once daily 2. Zofran (as hydrochloride) 4 mg Oral tab (Last dose: 11/17/2016 13:30) 3. Ortho Tri-Cyclen (28) 0.18/0.215/0.25 mg-35 mcg (28) Oral tab 1 tab once daily - PMHx: Hypothyroidism; - PSHx: none; - Social history: Smoking status: Patient states was never smoker of tobacco. No barriers to communication noted, The patient speaks fluent Macedonian, Speaks appropriately for age. - Family history: Not pertinent. - : The pt / caregiver states he / she is not on anticoagulants. Home medication list is obtained from the patient. - Exposure Risk Screening:: None identified. Screenin:53 Screening information is obtained from the patient. Fall risk: No risks identified. kr3 Assistance ADL's: requires no assistance with activities of daily living. Abuse/DV Screen: The patient / caregiver reports he/she is: not in a situation that causes fear, pain or injury. Nutritional screening: No deficits noted. Advance Directives: Currently, there is no health care proxy. home support is adequate. Assessment: 14:52 General: Appears in no apparent distress, comfortable, Behavior is cooperative. Pain: kr3 Location: right upper quadrant and left upper quadrant Pain currently is 5 out of 10 on a pain scale. Neurological: Level of Consciousness is awake, alert. Respiratory: Respiratory effort is even, unlabored. GI: Abdomen is non- distended Bowel sounds present X 4 quads. Abd is soft and non tender X 4 quads. GI: Reports nausea, vomiting, had loose bowel movement this AM. Derm: Skin is normal. 15:49 General: Appears in no apparent distress, comfortable, Behavior is appropriate for age, jmb cooperative, Patient laying on stretcher with friends at bedside. NO voiced complaints at this time. . Neurological: Level of Consciousness is awake, alert, obeys commands, Oriented to person, place, time. Respiratory: Airway is patent Respiratory effort is even, unlabored, Respiratory pattern is regular, symmetrical. 16:41 General: Appears in no apparent distress, comfortable, Behavior is appropriate for age, jmb cooperative. Neurological: Level of Consciousness is awake, alert, obeys commands, Oriented to person, place, time. Respiratory: Airway is patent Respiratory effort is even, unlabored, Respiratory pattern is regular, symmetrical. 17:37 General: Patient instructed on discharge instructions. Patient asked if there were any b questions regarding discharge, patient stated no. IV discontinued per hospital policy. Patient signed discharge instructions. Patient discharged in stable condition. . Vital Signs: 14:21 BP 115 / 73; Pulse 94; Resp 18 S; Temp 97.5(O); Pulse Ox 100% on R/A; Weight 99.79 kg dd6 (R); Height 68 in. (172.72 cm) (R); 17:37 BP 110 / 70; Pulse 80; Resp 18; Temp 97.0(O); Pulse Ox 100% on R/A; Pain 0/10; jmb 14:21 Body Mass Index 33.45 (99.79 kg, 172.72 cm) dd6 Vitals: 14:21 Log In Time: November 17, 2016 at 14:19. dd6 ED Course: 14:20 Patient visited by Primitivo Eugene PCA. dd6 14:20 Patient moved to Waiting dd6 14:21 [facility]. dd6 14:22 Chaparrita Mckeon [facility]-C [facility] ef1 14:22 Patient moved to Pre RCE dd6 14:23 Marga Torres MD is Attending Physician. ef1 14:26 Triage Initiated hs1 14:28 Patient moved to Triage 1 ms18 14:29 Patient visited by Chaparrita Mckeon PA-C. ef1 14:36 Patient moved to I5 / M5 rs6 14:42 Pt greeted and oriented to ED. Patient advised of names of staff involved in care, jam1 location of call laws, wait times and NPO status. Patient has correct armband on for positive identification. Placed in gown. Bed in low position. Call light in reach. Side rails up X 1. Door closed. 14:51 Amylase Sent. kr3 14:51 Basic Metabolic Profile Sent. kr3 14:51 CBC with Diff Sent. kr3 14:51 Lipase Sent. kr3 14:51 Liver Profile Sent. kr3 14:51 Urinalysis Sent. kr3 14:52 Urine Culture Sent. kr3 14:53 The patient / caregiver is instructed regarding the plan of care and ED course. kr3 Accompanied by Friend, Patient has correct armband on for positive identification. Placed in gown. Bed in low position. Call light in reach. Side rails up X 1. 14:53 Inserted saline lock: 20 gauge in left hand and blood collected. The patient tolerated kr3 the procedure well. 15:10 Patient visited by Chaparrita Mckeon PA-C. ef1 15:45 Patient visited by Chaparrita Mckeon PA-C. ef1 15:49 Patient visited by José Antonio Meléndez RN. jmb 15:50 [facility] Payment Agreement was scanned into [employer] and attached to record. zo 15:52 PHCP role handed off by Chaparrita Mckeon PA-C ke 15:52 Marques Ying FNP is PHCP. ke 15:52 Patient visited by Marques Ying FNP. ke 16:19 Patient visited by Marques Ying FNP. ke 16:41 Patient visited by José Antonio Meléndez RN. janieb 17:05 Patient has correct armband on for positive identification. Bed in low position. Call jam1 light in reach. Side rails up X 1. Door closed. 17:11 Patient visited by Marques Ying FNP. ke 17:23 [facility] is Referral Physician. ke 17:37 Discontinued lock intact, bleeding controlled, pressure dressing applied, No jmb redness/swelling at site. No procedures done that require assistance. 18:18 CT ABD & PELVIS: IV Contrast Only Returned. EDMS 11/18 10:08 T-Sheet-- Draft Copy was scanned into [employer] and attached to record. gb Administered Medications: 11/17 14:52 Drug: NS 0.9% 1000 ml [sodium chloride 0.9 % intravenous solution] Route: IV; Rate: mcp bolus; Site: left hand; 14:52 Drug: Ondansetron 4 mg [ondansetron HCl 2 mg/mL intravenous solution (2 mL)] Route: mcp IVP; Site: left hand; 14:52 Drug: ketorolac 30 mg [ketorolac 30 mg/mL (1 mL) injection solution (1 mL)] Route: IVP; mcp Site: left hand; 17:25 Drug: Ciprofloxacin 500 mg [ciprofloxacin 500 mg tablet (1 tabs)] Route: PO; marcus 17:25 Drug: Phenazopyridine 200 mg [phenazopyridine 100 mg tablet (2 tabs)] Route: PO; marcus Point of Care Testing: Urine : 14:48 hCG Reading: Negative; Control Reading: Positive; ms18 Ranges: Order Results: Lab Order: Amylase; SPEC'M 11/17/16 15:33 Test: AMYLASE; Value: 53; Range: 25-115; Units: U/L; Status: F Lab Order: Basic Metabolic Profile; SPEC'M 11/17/16 15:33 Test: GLUCOSE, FASTING; Value: 110; Range: 70-105; Abnormal: Above high normal; Units: MG/DL; Status: F Test: BLOOD UREA NITROGEN; Value: 21; Range: 7-18; Abnormal: Above high normal; Units: MG/DL; Status: F Test: CREATININE FOR GFR; Value: 0.86; Range: 0.55-1.02; Units: MG/DL; Status: F Test: GLOMERULAR FILTRATION RATE; Value: > 60.0; Range: >60; Status: F Test: SODIUM LEVEL; Value: 142; Range: 136-145; Units: MEQ/L; Status: F Test: POTASSIUM SERUM; Value: 4.0; Range: 3.5-5.1; Units: MEQ/L; Status: F Test: CHLORIDE LEVEL; Value: 108; Range: 98-107; Abnormal: Above high normal; Units: MEQ/L; Status: F Test: CARBON DIOXIDE LEVEL; Value: 26; Range: 21-32; Units: MEQ/L; Status: F Test: ANION GAP; Value: 8; Range: 8-16; Units: MEQ/L; Status: F Test: CALCIUM LEVEL; Value: 8.2; Range: 8.5-10.1; Abnormal: Below low normal; Units: MG/DL; Status: F Test Note: ; Units are mL/min/1.73 m2 Chronic Kidney Disease Staging per NKF: Stage I & II GFR >=60 Normal to Mildly Decreased Stage III GFR 30-59 Moderately Decreased Stage IV GFR 15-29 Severely Decreased Stage V GFR <15 Very Little GFR Left ESRD GFR <15 on PHARMACY ANCILLARY Lab Order: CBC with Diff; SPEC'M 11/17/16 14:50 Test: WHITE BLOOD COUNT; Value: 8.7; Range: 4.0-10.0; Units: K/mm3; Status: F Test: RED BLOOD COUNT; Value: 5.09; Range: 4.00-5.40; Units: M/mm3; Status: F Test: HEMOGLOBIN; Value: 14.9; Range: 12.0-16.0; Units: g/dl; Status: F Test: HEMATOCRIT; Value: 44.0; Range: 36.0-47.0; Units: %; Status: F Test: MEAN CORPUSCULAR VOLUME; Value: 86.4; Range: 80.0-96.0; Units: fl; Status: F Test: MEAN CORPUSCULAR HEMOGLOBIN; Value: 29.2; Range: 27.0-33.0; Units: pg; Status: F Test: MEAN CORPUSCULAR HGB CONC; Value: 33.8; Range: 32.0-36.5; Units: g/dl; Status: F Test: RED CELL DISTRIBUTION WIDTH; Value: 12.8; Range: 11.5-14.5; Units: %; Status: F Test: PLATELET COUNT, AUTOMATED; Value: 216; Range: 150-450; Units: k/mm3; Status: F Test: NEUTROPHILS %; Value: 79.1; Range: 36.0-66.0; Abnormal: Above high normal; Units: %; Status: F Test: LYMPH %; Value: 14.1; Range: 24.0-44.0; Abnormal: Below low normal; Units: %; Status: F Test: MONO %; Value: 2.9; Range: 0.0-5.0; Units: %; Status: F Test: EOS %; Value: 2.5; Range: 0.0-3.0; Units: %; Status: F Test: BASO %; Value: 0.3; Range: 0.0-1.0; Units: %; Status: F Test: LARGE UNSTAINED CELL %; Value: 1.2; Range: 0.0-4.0; Units: %; Status: F Test: NEUTROPHILS #; Value: 6.9; Range: 1.8-7.7; Units: K/mm3; Status: F Test: LYMPH #; Value: 1.2; Range: 1.5-6.5; Abnormal: Below low normal; Units: K/mm3; Status: F Test: MONO #; Value: 0.3; Range: 0.0-0.8; Units: K/mm3; Status: F Test: EOS #; Value: 0.2; Range: 0.0-0.50; Units: K/mm3; Status: F Test: BASO #; Value: 0.0; Range: 0.0-0.2; Units: K/mm3; Status: F Test: LARGE UNSTAINED CELL #; Value: 0.1; Range: 0.0-0.4; Units: K/mm3; Status: F Lab Order: Lipase; SPEC'M 11/17/16 15:33 Test: LIPASE; Value: 66; Range: 73-393; Abnormal: Below low normal; Units: U/L; Status: F Lab Order: Liver Profile; SPEC'M 11/17/16 15:33 Test: AST/SGOT; Value: 17; Range: 15-37; Units: U/L; Status: F Test: ALT/SGPT; Value: 27; Range: 12-78; Units: U/L; Status: F Test: ALKALINE PHOSPHATASE; Value: 91; Range: 45-117; Units: U/L; Status: F Test: BILIRUBIN,TOTAL; Value: 0.6; Range: 0.2-1.0; Units: MG/DL; Status: F Test: BILIRUBIN,DIRECT; Value: 0.1; Range: 0.0-0.2; Units: MG/DL; Status: F Test: TOTAL PROTEIN; Value: 6.9; Range: 6.4-8.2; Units: GM/DL; Status: F Test: ALBUMIN; Value: 3.7; Range: 3.2-5.2; Units: GM/DL; Status: F Test: ALBUMIN/GLOBULIN RATIO; Value: 1.16; Range: 1.00-1.93; Status: F Lab Order: Urinalysis; SPEC'M 11/17/16 14:39 Test: APPEARANCE, URINE; Value: HAZY; Range: CLEAR; Status: F Test: COLOR, URINE; Value: YELLOW; Range: YELLOW; Status: F Test: PH,URINE; Value: 5.0; Range: 5.0-9.0; Units: UNITS; Status: F Test: SPECIFIC GRAVITY URINE AUTO; Value: 1.032; Range: 1.002-1.035; Status: F Test: PROTEIN, URINE AUTO; Value: 1+; Range: NEGATIVE; Abnormal: Above high normal; Units: mg/dL; Status: F Test: GLUCOSE, URINE (UA) AUTO; Value: NEGATIVE; Range: NEGATIVE; Units: mg/dL; Status: F Test: KETONE, URINE AUTO; Value: NEGATIVE; Range: NEGATIVE; Units: mg/dL; Status: F Test: UROBILINOGEN, URINE AUTO; Value: 0.2; Range: 0.0-2.0; Units: mg/dL; Status: F Test: BILIRUBIN, URINE AUTO; Value: NEGATIVE; Range: NEGATIVE; Status: F Test: NITRITE, URINE AUTO; Value: NEGATIVE; Range: NEGATIVE; Status: F Test: LEUKOCYTE ESTERASE, URINE AUTO; Value: 3+; Range: NEGATIVE; Abnormal: Above high normal; Status: F Test: BLOOD, URINE BLOOD; Value: NEGATIVE; Range: NEGATIVE; Status: F Test: WBC, URINE AUTO; Value: 51; Range: 0-3; Abnormal: Above high normal; Units: /HPF; Status: F Test: RBC, URINE AUTO; Value: 7; Range: 0-3; Abnormal: Above high normal; Units: /HPF; Status: F Test: BACTERIA, URINE AUTO; Value: 1+; Range: NEGATIVE; Abnormal: Above high normal; Status: F Test: SQUAMOUS EPITHELIAL CELL UR AU; Value: 6; Range: 0-6; Units: /HPF; Status: F Test: MUCUS, URINE; Value: SMALL; Range: NEGATIVE; Status: F Test: HYALINE CAST, URINE AUTO; Value: 0; Range: 0-1; Units: /LPF; Status: F Lab Order: Urine Culture; SPEC'M 11/17/16 14:39 Test: URINE CULTURE; Value: ORGANISM 1: ESCHERICHIA COLI; Status: F Test: URINE CULTURE; Value: ESCHERICHIA COLI; Status: F Test: URINE CULTURE; Value: COLONY COUNT CFU/ml 80,000; Status: F Test: URINE CULTURE; Value: GRAM NEG SENSI - VITEK 80; Status: F Test: URINE CULTURE; Value: Method: VIT2; Status: F Test: URINE CULTURE; Value: EXTD BRD SPCTRM BETA LACTAMASE -; Status: F Test: URINE CULTURE; Value: TRIMETHOPRIM/SULFAMETHOXAZOLE >=320 R; Status: F Test: URINE CULTURE; Value: AMPICILLIN >=32 R; Status: F Test: URINE CULTURE; Value: GENTAMICIN <=1 S; Status: F Test: URINE CULTURE; Value: NITROFURANTOIN <=16 S; Status: F Test: URINE CULTURE; Value: CEFAZOLIN <=4 S; Status: F Test: URINE CULTURE; Value: LEVOFLOXACIN <=0.12 S; Status: F Test: URINE CULTURE; Value: TOBRAMYCIN <=1 S; Status: F Test: URINE CULTURE; Value: CEFTRIAXONE <=1 S; Status: F Test: URINE CULTURE; Value: CEFTAZIDIME <=1 S; Status: F Test: URINE CULTURE; Value: AMPICILLIN/SULBACTAM >=32 R; Status: F Test: URINE CULTURE; Value: PIPERACILLIN/TAZOBACTAM <=4 S; Status: F Test: URINE CULTURE; Value: AZTREONAM <=1 S; Status: F Test: URINE CULTURE; Value: ERTAPENEM <=0.5 S; Status: F Test: URINE CULTURE; Value: MEROPENEM <=0.25 S; Status: F Test: URINE CULTURE; Value: TIGECYCLINE <=0.5 S; Status: F Test: URINE CULTURE; Value: CEFEPIME <=1 S; Status: F Radiology Order: CT ABD & PELVIS: IV Contrast Only Test: CT ABD & PELVIS: IV Contrast Only REASON FOR EXAMINATION: Appendicitis; Clinical: Right lower quadrant pain.; ; Technique: Axial contrast enhanced images from the lung bases to the pubic; symphysis using 100 ml Isovue 370 intravenous contrast material with coronal and; sagittal re-formations.; ; Findings:; Lung bases clear. Visualized heart and pericardium normal.; ; Liver, spleen, pancreas, gallbladder, bilateral adrenal glands and kidneys are; normal. The enteric system demonstrates a mild prominence to the small bowel; which may reflect acute enteritis. There is no evidence for bowel obstruction; and a normal terminal ileum and appendix are identified in the right lower; quadrant. Pelvis demonstrates normal bladder and the age-appropriate; uterus/adnexa. No pelvic fluid or ascites. No free air. No adenopathy.; Vasculature normal. Surrounding musculoskeletal structures are intact.; ; Impression:; No evidence for acute appendicitis.; Possible enteritis.; ; ; Signed by; Duncan Couch MD 11/17/2016 05:07 P; Outcome: 17:24 Discharge ordered by Provider. nish 17:37 Discharge Assessment: Patient awake, alert and oriented x 3. No cognitive and/or jmb functional deficits noted. Patient verbalized understanding of disposition instructions. Patient awake and alert. obeys commands, Oriented to person, place and time. Patient verbalized understanding of disposition instructions. Patient has no functional deficits. patient administered narcotics - no. The following High Risk Discharge criteria are identified: None. Discharged to home ambulatory, with significant other. Condition: stable. Discharge instructions given to patient, Instructed on discharge instructions, follow up and referral plans. medication usage, Demonstrated understanding of instructions, medications, Pt was receptive of discharge instructions/ teaching. Prescriptions given X 3. CT Study completed. Property sent home with patient. 17:40 Patient left the ED. marcus Addendum: 11/20/2016 10:10 Narrative: Urine culture report received and reviewed by Dr. Torres. No new jc4 orders received. Signatures: Dispatcher [employer] EDMS Mirta Wynn, RN RN Jennifer Lawrence, IDENTIFIER HORSE IDENTIFIER HORSE jam1 Barbara Arce, Reg Reg gb Marques Ying, CATHODE RAY TUBE ASSEMBLER CATHODE RAY TUBE ASSEMBLER Viji Genao,RN RN kr3 Ofe Jeong Daniell, IDENTIFIER HORSE IDENTIFIER HORSE dd6 Chaparrita Mckeon, PA-C PA-C ef1 Trish Talley, RN RN hs1 Hue Maria RN RN jc4 José Antonio Meléndez,Vikki Wong RN, RN RN ms18 Deena Gaines, IDENTIFIER HORSE IDENTIFIER HORSE rs6 Chart Complete MTDLuz
--- NOTE | 2016-11-20 10:13 | EDDOCDS ---
Physician Documentation [facility] Name: Kirstie Osborne Age: 21 yrs Sex: Female : 1995 Arrival Date: 11/17/2016 Time: 14:19 Bed I5 / M5 Private MD: [facility] Disposition: 11/17/16 17:24 Discharged to Home/Self Care. Impression: Urinary tract infection, site not specified, Abdominal and pelvic pain. - Condition is Stable. - Discharge Instructions: Abdominal Pain, Adult. - Prescriptions for Cipro 500 mg Oral Tablet - take 1 tablet by ORAL route every 12 hours; 14 tablet. Pyridium 200 mg Oral Tablet - take 1 tablet by ORAL route every 8 hours for 3 days; 9 tablet. Zofran 4 mg Oral Tablet - take 1 tablet by ORAL route 4 times per day As needed; 10 tablet. - Medication Reconciliation, Local Pharmacy Hours form. - Follow up: [facility]; When: As needed; Reason: Continuance of care. - Problem is an ongoing problem. - Symptoms are unchanged. Historical: - Allergies: No known drug Allergies; - Home Meds: 1. levothyroxine 175 mcg Oral tab 1 tab once daily 2. Zofran (as hydrochloride) 4 mg Oral tab (Last dose: 11/17/2016 13:30) 3. Ortho Tri-Cyclen (28) 0.18/0.215/0.25 mg-35 mcg (28) Oral tab 1 tab once daily - PMHx: Hypothyroidism; - PSHx: none; - Social history: Smoking status: Patient states was never smoker of tobacco. No barriers to communication noted, The patient speaks fluent Mauritanian, Speaks appropriately for age. - Family history: Not pertinent. - : The pt / caregiver states he / she is not on anticoagulants. Home medication list is obtained from the patient. - Exposure Risk Screening:: None identified. CAN MARKER: 11/17 14:29 LMP 11/08/2016 hs1 Vital Signs: 14:21 BP 115 / 73; Pulse 94; Resp 18 S; Temp 97.5(O); Pulse Ox 100% on R/A; Weight 99.79 kg / dd6 220 lbs (R); Height 68 in. (172.72 cm) (R); 17:37 BP 110 / 70; Pulse 80; Resp 18; Temp 97.0(O); Pulse Ox 100% on R/A; Pain 0/10; jmb 14:21 Body Mass Index 33.45 (99.79 kg, 172.72 cm) dd6 MDM: 14:35 NS 0.9% 1000 ml IV at bolus once ordered. ef1 14:35 Ondansetron 4 mg IVP once ordered. ef1 14:35 ketorolac 30 mg IVP once ordered. ef1 14:35 IV Saline Lock ordered. ef1 14:35 Undress patient appropriately for examination ordered. ef1 14:35 UCG by Nursing ordered. ef1 14:36 Amylase Ordered. EDMS 14:36 Basic Metabolic Profile Ordered. EDMS 14:36 CBC with Diff Ordered. EDMS 14:36 Lipase Ordered. EDMS 14:36 Liver Profile Ordered. EDMS 14:36 Urinalysis Ordered. EDMS 14:36 Urine Culture Ordered. EDMS 14:36 CT ABD & PELVIS: IV Contrast Only Ordered. EDMS 14:36 NOTHING BY MOUTH+DIET ordered. EDMS 15:10 CBC with Diff Reviewed. ef1 15:21 Urinalysis Reviewed. ef1 15:42 Financial registration complete. zo 15:50 [facility] Payment Agreement was scanned into [employer] and attached to record. zo 16:11 Basic Metabolic Profile Reviewed. ke 16:11 Lipase Reviewed. ke 16:11 Amylase Reviewed. ke 16:11 Liver Profile Reviewed. ke 17:25 Ciprofloxacin 500 mg PO once ordered. ke 17:25 Phenazopyridine 200 mg PO once ordered. ke 11/18 10:08 T-Sheet-- Draft Copy was scanned into [employer] and attached to record. gb Point of Care Testing: Urine : 11/17 14:48 hCG Reading: Negative; Control Reading: Positive; ms18 Ranges: Administered Medications: 14:52 Drug: NS 0.9% 1000 ml [sodium chloride 0.9 % intravenous solution] Route: IV; Rate: mcp bolus; Site: left hand; 14:52 Drug: Ondansetron 4 mg [ondansetron HCl 2 mg/mL intravenous solution (2 mL)] Route: mcp IVP; Site: left hand; 14:52 Drug: ketorolac 30 mg [ketorolac 30 mg/mL (1 mL) injection solution (1 mL)] Route: IVP; mcp Site: left hand; 17:25 Drug: Ciprofloxacin 500 mg [ciprofloxacin 500 mg tablet (1 tabs)] Route: PO; marcus 17:25 Drug: Phenazopyridine 200 mg [phenazopyridine 100 mg tablet (2 tabs)] Route: PO; marcus Signatures: Dispatcher [employer] EDMS Barbara Arce, Tucker Reg gb Marques Ying, WHOLESALE PARTS SALESPERSON WHOLESALE PARTS SALESPERSON Ofe Short Erica, PA-C PAMarcus ef1 Trish Talley RN RN hs1 José Antonio Meléndez RN RN Mirta Dick RN [facility] The chart was reviewed and I authenticate all verbal orders and agree with the evaluation and treatment provided.Attachments: 15:50 [facility] Payment Agreement zo 11/18 10:08 T-Sheet-- Draft Copy gb Chart Complete MTDD
--- NOTE | 2016-11-20 10:13 | EDDOCDS ---
Physician Documentation [facility] Name: Kirstie Osborne Age: 21 yrs Sex: Female : 1995 Arrival Date: 11/17/2016 Time: 14:19 Bed I5 / M5 Private MD: [facility] [place] Disposition: 11/17/16 17:24 Discharged to Home/Self Care. Impression: Urinary tract infection, site not specified, Abdominal and pelvic pain. - Condition is Stable. - Discharge Instructions: Abdominal Pain, Adult. - Prescriptions for Cipro 500 mg Oral Tablet - take 1 tablet by ORAL route every 12 hours; 14 tablet. Pyridium 200 mg Oral Tablet - take 1 tablet by ORAL route every 8 hours for 3 days; 9 tablet. Zofran 4 mg Oral Tablet - take 1 tablet by ORAL route 4 times per day As needed; 10 tablet. - Medication Reconciliation, Local Pharmacy Hours form. - Follow up: [facility]; When: As needed; Reason: Continuance of care. - Problem is an ongoing problem. - Symptoms are unchanged. Historical: - Allergies: No known drug Allergies; - Home Meds: 1. levothyroxine 175 mcg Oral tab 1 tab once daily 2. Zofran (as hydrochloride) 4 mg Oral tab (Last dose: 11/17/2016 13:30) 3. Ortho Tri-Cyclen (28) 0.18/0.215/0.25 mg-35 mcg (28) Oral tab 1 tab once daily - PMHx: Hypothyroidism; - PSHx: none; - Social history: Smoking status: Patient states was never smoker of tobacco. No barriers to communication noted, The patient speaks fluent Indian, Speaks appropriately for age. - Family history: Not pertinent. - : The pt / caregiver states he / she is not on anticoagulants. Home medication list is obtained from the patient. - Exposure Risk Screening:: None identified. 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 (172.72 cm) (R); 17:37 BP 110 / 70; Pulse 80; Resp 18; Temp 97.0(O); Pulse Ox 100% on R/A; Pain 0/10; jmb 14:21 Body Mass Index 33.45 (99.79 kg, 172.72 cm) dd6 MDM: 14:35 NS 0.9% 1000 ml IV at bolus once ordered. ef1 14:35 Ondansetron 4 mg IVP once ordered. ef1 14:35 ketorolac 30 mg IVP once ordered. ef1 14:35 IV Saline Lock ordered. ef1 14:35 Undress patient appropriately for examination ordered. ef1 14:35 UCG by Nursing ordered. ef1 14:36 Amylase Ordered. EDMS 14:36 Basic Metabolic Profile Ordered. EDMS 14:36 CBC with Diff Ordered. EDMS 14:36 Lipase Ordered. EDMS 14:36 Liver Profile Ordered. EDMS 14:36 Urinalysis Ordered. EDMS 14:36 Urine Culture Ordered. EDMS 14:36 CT ABD & PELVIS: IV Contrast Only Ordered. EDMS 14:36 NOTHING BY MOUTH+DIET ordered. EDMS 15:10 CBC with Diff Reviewed. ef1 15:21 Urinalysis Reviewed. ef1 15:42 Financial registration complete. zo 15:50 [facility] [place] was scanned into [employer] and attached to record. zo 16:11 Basic Metabolic Profile Reviewed. ke 16:11 Lipase Reviewed. ke 16:11 Amylase Reviewed. ke 16:11 Liver Profile Reviewed. ke 17:25 Ciprofloxacin 500 mg PO once ordered. ke 17:25 Phenazopyridine 200 mg PO once ordered. ke 11/18 10:08 T-Sheet-- Draft Copy was scanned into [employer] and attached to record. gb Point of Care Testing: Urine : 11/17 14:48 hCG Reading: Negative; Control Reading: Positive; ms18 Ranges: Administered Medications: 14:52 Drug: NS 0.9% 1000 ml [sodium chloride 0.9 % intravenous solution] Route: IV; Rate: mcp bolus; Site: left hand; 14:52 Drug: Ondansetron 4 mg [ondansetron HCl 2 mg/mL intravenous solution (2 mL)] Route: mcp IVP; Site: left hand; 14:52 Drug: ketorolac 30 mg [ketorolac 30 mg/mL (1 mL) injection solution (1 mL)] Route: IVP; mcp Site: left hand; 17:25 Drug: Ciprofloxacin 500 mg [ciprofloxacin 500 mg tablet (1 tabs)] Route: PO; marcus 17:25 Drug: Phenazopyridine 200 mg [phenazopyridine 100 mg tablet (2 tabs)] Route: PO; marcus Signatures: Dispatcher [employer] EDMS Barbara Arce, Tucker Reg gb Marques Ying, REGISTERED NURSE OBSTETRICS REGISTERED NURSE OBSTETRICS Ofe Short Erica, PA-C PAMarcus ef1 Trish Talley RN RN hs1 José Antonio Meléndez RN RN Mirta Dick RN [facility] The chart was reviewed and I authenticate all verbal orders and agree with the evaluation and treatment provided.Attachments: 15:50 [facility] Agreement zo 11/18 10:08 T-Sheet-- Draft Copy gb Chart Complete MTDD
--- NOTE | 2016-11-20 11:12 | EDDOCDS ---
Physician Documentation [facility] Name: Kirstie Osborne Age: 21 yrs Sex: Female : 1995 Arrival Date: 11/17/2016 Time: 14:19 Bed I5 / M5 Private MD: [facility] Disposition: 11/17/16 17:24 Discharged to Home/Self Care. Impression: Urinary tract infection, site not specified, Abdominal and pelvic pain. - Condition is Stable. - Discharge Instructions: Abdominal Pain, Adult. - Prescriptions for Cipro 500 mg Oral Tablet - take 1 tablet by ORAL route every 12 hours; 14 tablet. Pyridium 200 mg Oral Tablet - take 1 tablet by ORAL route every 8 hours for 3 days; 9 tablet. Zofran 4 mg Oral Tablet - take 1 tablet by ORAL route 4 times per day As needed; 10 tablet. - Medication Reconciliation, Local Pharmacy Hours form. - Follow up: [facility]; When: As needed; Reason: Continuance of care. - Problem is an ongoing problem. - Symptoms are unchanged. Historical: - Allergies: No known drug Allergies; - Home Meds: 1. levothyroxine 175 mcg Oral tab 1 tab once daily 2. Zofran (as hydrochloride) 4 mg Oral tab (Last dose: 11/17/2016 13:30) 3. Ortho Tri-Cyclen (28) 0.18/0.215/0.25 mg-35 mcg (28) Oral tab 1 tab once daily - PMHx: Hypothyroidism; - PSHx: none; - Social history: Smoking status: Patient states was never smoker of tobacco. No barriers to communication noted, The patient speaks fluent Albanian, Speaks appropriately for age. - Family history: Not pertinent. - : The pt / caregiver states he / she is not on anticoagulants. Home medication list is obtained from the patient. - Exposure Risk Screening:: None identified. 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 (172.72 cm) (R); 17:37 BP 110 / 70; Pulse 80; Resp 18; Temp 97.0(O); Pulse Ox 100% on R/A; Pain 0/10; jmb 14:21 Body Mass Index 33.45 (99.79 kg, 172.72 cm) dd6 MDM: 14:35 NS 0.9% 1000 ml IV at bolus once ordered. ef1 14:35 Ondansetron 4 mg IVP once ordered. ef1 14:35 ketorolac 30 mg IVP once ordered. ef1 14:35 IV Saline Lock ordered. ef1 14:35 Undress patient appropriately for examination ordered. ef1 14:35 UCG by Nursing ordered. ef1 14:36 Amylase Ordered. EDMS 14:36 Basic Metabolic Profile Ordered. EDMS 14:36 CBC with Diff Ordered. EDMS 14:36 Lipase Ordered. EDMS 14:36 Liver Profile Ordered. EDMS 14:36 Urinalysis Ordered. EDMS 14:36 Urine Culture Ordered. EDMS 14:36 CT ABD & PELVIS: IV Contrast Only Ordered. EDMS 14:36 NOTHING BY MOUTH+DIET ordered. EDMS 15:10 CBC with Diff Reviewed. ef1 15:21 Urinalysis Reviewed. ef1 15:42 Financial registration complete. zo 15:50 [facility] [place] Payment Agreement was scanned into [employer] and attached to record. zo 16:11 Basic Metabolic Profile Reviewed. ke 16:11 Lipase Reviewed. ke 16:11 Amylase Reviewed. ke 16:11 Liver Profile Reviewed. ke 17:25 Ciprofloxacin 500 mg PO once ordered. ke 17:25 Phenazopyridine 200 mg PO once ordered. ke 11/18 10:08 T-Sheet-- Draft Copy was scanned into [employer] and attached to record. gb Point of Care Testing: Urine : 11/17 14:48 hCG Reading: Negative; Control Reading: Positive; ms18 Ranges: Administered Medications: 14:52 Drug: NS 0.9% 1000 ml [sodium chloride 0.9 % intravenous solution] Route: IV; Rate: mcp bolus; Site: left hand; 14:52 Drug: Ondansetron 4 mg [ondansetron HCl 2 mg/mL intravenous solution (2 mL)] Route: mcp IVP; Site: left hand; 14:52 Drug: ketorolac 30 mg [ketorolac 30 mg/mL (1 mL) injection solution (1 mL)] Route: IVP; mcp Site: left hand; 17:25 Drug: Ciprofloxacin 500 mg [ciprofloxacin 500 mg tablet (1 tabs)] Route: PO; marcus 17:25 Drug: Phenazopyridine 200 mg [phenazopyridine 100 mg tablet (2 tabs)] Route: PO; marcus Signatures: Dispatcher [employer] EDMS Barbara Arce, Tucker Reg gb Marques Ying, BLOWER MECHANIC BLOWER MECHANIC Ofe Short Erica, PA-C PAMarcus ef1 Trish Talley RN RN hs1 José Antonio Meléndez RN RN Mirta Dick RN [facility] The chart was reviewed and I authenticate all verbal orders and agree with the evaluation and treatment provided.Attachments: 15:50 [facility] Payment Agreement zo 11/18 10:08 T-Sheet-- Draft Copy gb Chart Complete MTDD
--- NOTE | 2016-11-20 11:12 | EDDOCDS ---
Nurse's Notes [facility] Name: Kirstie Osborne Age: 21 yrs Sex: Female : 1995 Arrival Date: 11/17/2016 Time: 14:19 Bed I5 / M5 [facility] Diagnosis: Urinary tract infection, site not specified;Abdominal and pelvic pain Presentation: 11/17 14:23 Presenting complaint: Patient states: severe abdominal button since early this morning. hs1 Patient states nauseated and vomited x1. Patient sent from [facility] for [facility]. Pt states pain woke her up from sleep on and off throughout the night. Risk factors: the patient reports no vaginal bleeding. Adult Sepsis Screening: The patient does not have new or worsening altered mentation. Patient's respiratory rate is less than 22. Systolic blood pressure is greater than 100. Patient has a qSOFA score of 0- Negative Sepsis Screen. Suicide/Homicide risk assessment- the patient denies having any suicidal and/or homicidal ideations and does not present with any other emotional, behavioral or mental health complaints. 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 Transition of care: patient was not received from another setting of care. 14:23 Acuity: RITA Level 3 hs1 14:23 Method Of Arrival: Walkin/Carried/Asstd hs1 Triage Assessment: 14:28 General: Appears in no apparent distress, Behavior is appropriate for age, cooperative. hs1 Pain: Location: abdomen Pain currently is 5 out of 10 on a pain scale. HIV screening NA for this visit active duty . GI: Abdomen is non- distended Reports bloating, diarrhea, nausea, vomiting. 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 levothyroxine 175 mcg Oral tab 1 tab once daily 2. Zofran (as hydrochloride) 4 mg Oral tab (Last dose: 11/17/2016 13:30) 3. Ortho Tri-Cyclen (28) 0.18/0.215/0.25 mg-35 mcg (28) Oral tab 1 tab once daily - PMHx: Hypothyroidism; - PSHx: none; - Social history: Smoking status: Patient states was never smoker of tobacco. No barriers to communication noted, The patient speaks fluent Albanian, Speaks appropriately for age. - Family history: Not pertinent. - : The pt / caregiver states he / she is not on anticoagulants. Home medication list is obtained from the patient. - Exposure Risk Screening:: None identified. Screenin:53 Screening information is obtained from the patient. Fall risk: No risks identified. kr3 Assistance ADL's: requires no assistance with activities of daily living. Abuse/DV Screen: The patient / caregiver reports he/she is: not in a situation that causes fear, pain or injury. Nutritional screening: No deficits noted. Advance Directives: Currently, there is no health care proxy. home support is adequate. Assessment: 14:52 General: Appears in no apparent distress, comfortable, Behavior is cooperative. Pain: kr3 Location: right upper quadrant and left upper quadrant Pain currently is 5 out of 10 on a pain scale. Neurological: Level of Consciousness is awake, alert. Respiratory: Respiratory effort is even, unlabored. GI: Abdomen is non- distended Bowel sounds present X 4 quads. Abd is soft and non tender X 4 quads. GI: Reports nausea, vomiting, had loose bowel movement this AM. Derm: Skin is normal. 15:49 General: Appears in no apparent distress, comfortable, Behavior is appropriate for age, jmb cooperative, Patient laying on stretcher with friends at bedside. NO voiced complaints at this time. . Neurological: Level of Consciousness is awake, alert, obeys commands, Oriented to person, place, time. Respiratory: Airway is patent Respiratory effort is even, unlabored, Respiratory pattern is regular, symmetrical. 16:41 General: Appears in no apparent distress, comfortable, Behavior is appropriate for age, jmb cooperative. Neurological: Level of Consciousness is awake, alert, obeys commands, Oriented to person, place, time. Respiratory: Airway is patent Respiratory effort is even, unlabored, Respiratory pattern is regular, symmetrical. 17:37 General: Patient instructed on discharge instructions. Patient asked if there were any b questions regarding discharge, patient stated no. IV discontinued per hospital policy. Patient signed discharge instructions. Patient discharged in stable condition. . Vital Signs: 14:21 BP 115 / 73; Pulse 94; Resp 18 S; Temp 97.5(O); Pulse Ox 100% on R/A; Weight 99.79 kg dd6 (R); Height 68 in. (172.72 cm) (R); 17:37 BP 110 / 70; Pulse 80; Resp 18; Temp 97.0(O); Pulse Ox 100% on R/A; Pain 0/10; jmb 14:21 Body Mass Index 33.45 (99.79 kg, 172.72 cm) dd6 Vitals: 14:21 Log In Time: November 17, 2016 at 14:19. dd6 ED Course: 14:20 Patient visited by Primitivo Eugene PCA. dd6 14:20 Patient moved to Waiting dd6 14:21 [facility]. dd6 14:22 [facility]ke[facility] ef1 14:22 Patient moved to Pre RCE dd6 14:23 Marga Torres MD is Attending Physician. ef1 14:26 Triage Initiated hs1 14:28 Patient moved to Triage 1 ms18 14:29 Patient visited by Chaparrita Mckeon PA-C. ef1 14:36 Patient moved to I5 / M5 rs6 14:42 Pt greeted and oriented to ED. Patient advised of names of staff involved in care, jam1 location of call laws, wait times and NPO status. Patient has correct armband on for positive identification. Placed in gown. Bed in low position. Call light in reach. Side rails up X 1. Door closed. 14:51 Amylase Sent. kr3 14:51 Basic Metabolic Profile Sent. kr3 14:51 CBC with Diff Sent. kr3 14:51 Lipase Sent. kr3 14:51 Liver Profile Sent. kr3 14:51 Urinalysis Sent. kr3 14:52 Urine Culture Sent. kr3 14:53 The patient / caregiver is instructed regarding the plan of care and ED course. kr3 Accompanied by Friend, Patient has correct armband on for positive identification. Placed in gown. Bed in low position. Call light in reach. Side rails up X 1. 14:53 Inserted saline lock: 20 gauge in left hand and blood collected. The patient tolerated kr3 the procedure well. 15:10 Patient visited by Chaparrita Mckeon PA-C. ef1 15:45 Patient visited by Chaparrita Mckeon PA-C. ef1 15:49 Patient visited by José Antonio Meléndez RN. jmb 15:50 [facility] Payment Agreement was scanned into [employer] and attached to record. zo 15:52 PHCP role handed off by Chaparrita Mckeon PA-C ke 15:52 Marques Ying FNP is PHCP. ke 15:52 Patient visited by Marques Ying FNP. ke 16:19 Patient visited by Marques Ying FNP. ke 16:41 Patient visited by José Antonio Meléndez RN. janieb 17:05 Patient has correct armband on for positive identification. Bed in low position. Call jam1 light in reach. Side rails up X 1. Door closed. 17:11 Patient visited by Marques Ying FNP. ke 17:23 [facility] is Referral Physician. ke 17:37 Discontinued lock intact, bleeding controlled, pressure dressing applied, No jmb redness/swelling at site. No procedures done that require assistance. 18:18 CT ABD & PELVIS: IV Contrast Only Returned. EDMS 11/18 10:08 T-Sheet-- Draft Copy was scanned into [employer] and attached to record. gb Administered Medications: 11/17 14:52 Drug: NS 0.9% 1000 ml [sodium chloride 0.9 % intravenous solution] Route: IV; Rate: mcp bolus; Site: left hand; 14:52 Drug: Ondansetron 4 mg [ondansetron HCl 2 mg/mL intravenous solution (2 mL)] Route: mcp IVP; Site: left hand; 14:52 Drug: ketorolac 30 mg [ketorolac 30 mg/mL (1 mL) injection solution (1 mL)] Route: IVP; mcp Site: left hand; 17:25 Drug: Ciprofloxacin 500 mg [ciprofloxacin 500 mg tablet (1 tabs)] Route: PO; marcus 17:25 Drug: Phenazopyridine 200 mg [phenazopyridine 100 mg tablet (2 tabs)] Route: PO; marcus Point of Care Testing: Urine : 14:48 hCG Reading: Negative; Control Reading: Positive; ms18 Ranges: Order Results: Lab Order: Amylase; SPEC'M 11/17/16 15:33 Test: AMYLASE; Value: 53; Range: 25-115; Units: U/L; Status: F Lab Order: Basic Metabolic Profile; SPEC'M 11/17/16 15:33 Test: GLUCOSE, FASTING; Value: 110; Range: 70-105; Abnormal: Above high normal; Units: MG/DL; Status: F Test: BLOOD UREA NITROGEN; Value: 21; Range: 7-18; Abnormal: Above high normal; Units: MG/DL; Status: F Test: CREATININE FOR GFR; Value: 0.86; Range: 0.55-1.02; Units: MG/DL; Status: F Test: GLOMERULAR FILTRATION RATE; Value: > 60.0; Range: >60; Status: F Test: SODIUM LEVEL; Value: 142; Range: 136-145; Units: MEQ/L; Status: F Test: POTASSIUM SERUM; Value: 4.0; Range: 3.5-5.1; Units: MEQ/L; Status: F Test: CHLORIDE LEVEL; Value: 108; Range: 98-107; Abnormal: Above high normal; Units: MEQ/L; Status: F Test: CARBON DIOXIDE LEVEL; Value: 26; Range: 21-32; Units: MEQ/L; Status: F Test: ANION GAP; Value: 8; Range: 8-16; Units: MEQ/L; Status: F Test: CALCIUM LEVEL; Value: 8.2; Range: 8.5-10.1; Abnormal: Below low normal; Units: MG/DL; Status: F Test Note: ; Units are mL/min/1.73 m2 Chronic Kidney Disease Staging per NKF: Stage I & II GFR >=60 Normal to Mildly Decreased Stage III GFR 30-59 Moderately Decreased Stage IV GFR 15-29 Severely Decreased Stage V GFR <15 Very Little GFR Left ESRD GFR <15 on NURSES DIRECTOR Lab Order: CBC with Diff; SPEC'M 11/17/16 14:50 Test: WHITE BLOOD COUNT; Value: 8.7; Range: 4.0-10.0; Units: K/mm3; Status: F Test: RED BLOOD COUNT; Value: 5.09; Range: 4.00-5.40; Units: M/mm3; Status: F Test: HEMOGLOBIN; Value: 14.9; Range: 12.0-16.0; Units: g/dl; Status: F Test: HEMATOCRIT; Value: 44.0; Range: 36.0-47.0; Units: %; Status: F Test: MEAN CORPUSCULAR VOLUME; Value: 86.4; Range: 80.0-96.0; Units: fl; Status: F Test: MEAN CORPUSCULAR HEMOGLOBIN; Value: 29.2; Range: 27.0-33.0; Units: pg; Status: F Test: MEAN CORPUSCULAR HGB CONC; Value: 33.8; Range: 32.0-36.5; Units: g/dl; Status: F Test: RED CELL DISTRIBUTION WIDTH; Value: 12.8; Range: 11.5-14.5; Units: %; Status: F Test: PLATELET COUNT, AUTOMATED; Value: 216; Range: 150-450; Units: k/mm3; Status: F Test: NEUTROPHILS %; Value: 79.1; Range: 36.0-66.0; Abnormal: Above high normal; Units: %; Status: F Test: LYMPH %; Value: 14.1; Range: 24.0-44.0; Abnormal: Below low normal; Units: %; Status: F Test: MONO %; Value: 2.9; Range: 0.0-5.0; Units: %; Status: F Test: EOS %; Value: 2.5; Range: 0.0-3.0; Units: %; Status: F Test: BASO %; Value: 0.3; Range: 0.0-1.0; Units: %; Status: F Test: LARGE UNSTAINED CELL %; Value: 1.2; Range: 0.0-4.0; Units: %; Status: F Test: NEUTROPHILS #; Value: 6.9; Range: 1.8-7.7; Units: K/mm3; Status: F Test: LYMPH #; Value: 1.2; Range: 1.5-6.5; Abnormal: Below low normal; Units: K/mm3; Status: F Test: MONO #; Value: 0.3; Range: 0.0-0.8; Units: K/mm3; Status: F Test: EOS #; Value: 0.2; Range: 0.0-0.50; Units: K/mm3; Status: F Test: BASO #; Value: 0.0; Range: 0.0-0.2; Units: K/mm3; Status: F Test: LARGE UNSTAINED CELL #; Value: 0.1; Range: 0.0-0.4; Units: K/mm3; Status: F Lab Order: Lipase; SPEC'M 11/17/16 15:33 Test: LIPASE; Value: 66; Range: 73-393; Abnormal: Below low normal; Units: U/L; Status: F Lab Order: Liver Profile; SPEC'M 11/17/16 15:33 Test: AST/SGOT; Value: 17; Range: 15-37; Units: U/L; Status: F Test: ALT/SGPT; Value: 27; Range: 12-78; Units: U/L; Status: F Test: ALKALINE PHOSPHATASE; Value: 91; Range: 45-117; Units: U/L; Status: F Test: BILIRUBIN,TOTAL; Value: 0.6; Range: 0.2-1.0; Units: MG/DL; Status: F Test: BILIRUBIN,DIRECT; Value: 0.1; Range: 0.0-0.2; Units: MG/DL; Status: F Test: TOTAL PROTEIN; Value: 6.9; Range: 6.4-8.2; Units: GM/DL; Status: F Test: ALBUMIN; Value: 3.7; Range: 3.2-5.2; Units: GM/DL; Status: F Test: ALBUMIN/GLOBULIN RATIO; Value: 1.16; Range: 1.00-1.93; Status: F Lab Order: Urinalysis; SPEC'M 11/17/16 14:39 Test: APPEARANCE, URINE; Value: HAZY; Range: CLEAR; Status: F Test: COLOR, URINE; Value: YELLOW; Range: YELLOW; Status: F Test: PH,URINE; Value: 5.0; Range: 5.0-9.0; Units: UNITS; Status: F Test: SPECIFIC GRAVITY URINE AUTO; Value: 1.032; Range: 1.002-1.035; Status: F Test: PROTEIN, URINE AUTO; Value: 1+; Range: NEGATIVE; Abnormal: Above high normal; Units: mg/dL; Status: F Test: GLUCOSE, URINE (UA) AUTO; Value: NEGATIVE; Range: NEGATIVE; Units: mg/dL; Status: F Test: KETONE, URINE AUTO; Value: NEGATIVE; Range: NEGATIVE; Units: mg/dL; Status: F Test: UROBILINOGEN, URINE AUTO; Value: 0.2; Range: 0.0-2.0; Units: mg/dL; Status: F Test: BILIRUBIN, URINE AUTO; Value: NEGATIVE; Range: NEGATIVE; Status: F Test: NITRITE, URINE AUTO; Value: NEGATIVE; Range: NEGATIVE; Status: F Test: LEUKOCYTE ESTERASE, URINE AUTO; Value: 3+; Range: NEGATIVE; Abnormal: Above high normal; Status: F Test: BLOOD, URINE BLOOD; Value: NEGATIVE; Range: NEGATIVE; Status: F Test: WBC, URINE AUTO; Value: 51; Range: 0-3; Abnormal: Above high normal; Units: /HPF; Status: F Test: RBC, URINE AUTO; Value: 7; Range: 0-3; Abnormal: Above high normal; Units: /HPF; Status: F Test: BACTERIA, URINE AUTO; Value: 1+; Range: NEGATIVE; Abnormal: Above high normal; Status: F Test: SQUAMOUS EPITHELIAL CELL UR AU; Value: 6; Range: 0-6; Units: /HPF; Status: F Test: MUCUS, URINE; Value: SMALL; Range: NEGATIVE; Status: F Test: HYALINE CAST, URINE AUTO; Value: 0; Range: 0-1; Units: /LPF; Status: F Lab Order: Urine Culture; SPEC'M 11/17/16 14:39 Test: URINE CULTURE; Value: ORGANISM 1: ESCHERICHIA COLI; Status: F Test: URINE CULTURE; Value: ESCHERICHIA COLI; Status: F Test: URINE CULTURE; Value: COLONY COUNT CFU/ml 80,000; Status: F Test: URINE CULTURE; Value: GRAM NEG SENSI - VITEK 80; Status: F Test: URINE CULTURE; Value: Method: VIT2; Status: F Test: URINE CULTURE; Value: EXTD BRD SPCTRM BETA LACTAMASE -; Status: F Test: URINE CULTURE; Value: TRIMETHOPRIM/SULFAMETHOXAZOLE >=320 R; Status: F Test: URINE CULTURE; Value: AMPICILLIN >=32 R; Status: F Test: URINE CULTURE; Value: GENTAMICIN <=1 S; Status: F Test: URINE CULTURE; Value: NITROFURANTOIN <=16 S; Status: F Test: URINE CULTURE; Value: CEFAZOLIN <=4 S; Status: F Test: URINE CULTURE; Value: LEVOFLOXACIN <=0.12 S; Status: F Test: URINE CULTURE; Value: TOBRAMYCIN <=1 S; Status: F Test: URINE CULTURE; Value: CEFTRIAXONE <=1 S; Status: F Test: URINE CULTURE; Value: CEFTAZIDIME <=1 S; Status: F Test: URINE CULTURE; Value: AMPICILLIN/SULBACTAM >=32 R; Status: F Test: URINE CULTURE; Value: PIPERACILLIN/TAZOBACTAM <=4 S; Status: F Test: URINE CULTURE; Value: AZTREONAM <=1 S; Status: F Test: URINE CULTURE; Value: ERTAPENEM <=0.5 S; Status: F Test: URINE CULTURE; Value: MEROPENEM <=0.25 S; Status: F Test: URINE CULTURE; Value: TIGECYCLINE <=0.5 S; Status: F Test: URINE CULTURE; Value: CEFEPIME <=1 S; Status: F Radiology Order: CT ABD & PELVIS: IV Contrast Only Test: CT ABD & PELVIS: IV Contrast Only REASON FOR EXAMINATION: Appendicitis; Clinical: Right lower quadrant pain.; ; Technique: Axial contrast enhanced images from the lung bases to the pubic; symphysis using 100 ml Isovue 370 intravenous contrast material with coronal and; sagittal re-formations.; ; Findings:; Lung bases clear. Visualized heart and pericardium normal.; ; Liver, spleen, pancreas, gallbladder, bilateral adrenal glands and kidneys are; normal. The enteric system demonstrates a mild prominence to the small bowel; which may reflect acute enteritis. There is no evidence for bowel obstruction; and a normal terminal ileum and appendix are identified in the right lower; quadrant. Pelvis demonstrates normal bladder and the age-appropriate; uterus/adnexa. No pelvic fluid or ascites. No free air. No adenopathy.; Vasculature normal. Surrounding musculoskeletal structures are intact.; ; Impression:; No evidence for acute appendicitis.; Possible enteritis.; ; ; Signed by; Duncan Couch MD 11/17/2016 05:07 P; Outcome: 17:24 Discharge ordered by Provider. nish 17:37 Discharge Assessment: Patient awake, alert and oriented x 3. No cognitive and/or jmb functional deficits noted. Patient verbalized understanding of disposition instructions. Patient awake and alert. obeys commands, Oriented to person, place and time. Patient verbalized understanding of disposition instructions. Patient has no functional deficits. patient administered narcotics - no. The following High Risk Discharge criteria are identified: None. Discharged to home ambulatory, with significant other. Condition: stable. Discharge instructions given to patient, Instructed on discharge instructions, follow up and referral plans. medication usage, Demonstrated understanding of instructions, medications, Pt was receptive of discharge instructions/ teaching. Prescriptions given X 3. CT Study completed. Property sent home with patient. 17:40 Patient left the ED. marcus Addendum: 11/20/2016 10:10 Narrative: Urine culture report received and reviewed by Dr. Torres. No new jc4 orders received. Signatures: Dispatcher [employer] EDMS Mirta Wynn, RN RN Jennifer Lawrence, FINISH REPAIR WORKER FINISH REPAIR WORKER jam1 Barbara Arce, Reg Reg gb Marques Ying, FIELD AUDITOR FIELD AUDITOR Viji Genao,RN RN kr3 Ofe Jeong Daniell, FINISH REPAIR WORKER FINISH REPAIR WORKER dd6 Chaparrita Mckeon, PA-C PA-C ef1 Trish Talley, RN RN hs1 Hue Maria RN RN jc4 José Antonio Meléndez,Vikki Wong RN, RN RN ms18 Deena Gaines, FINISH REPAIR WORKER FINISH REPAIR WORKER rs6 Chart Complete MTDLuz
--- NOTE | 2016-11-20 11:12 | EDDOCDS ---
Physician Documentation [facility] Name: Kirstie Osborne Age: 21 yrs Sex: Female : 1995 Arrival Date: 11/17/2016 Time: 14:19 Bed I5 / M5 Private MD: [facility] Disposition: 11/17/16 17:24 Discharged to Home/Self Care. Impression: Urinary tract infection, site not specified, Abdominal and pelvic pain. - Condition is Stable. - Discharge Instructions: Abdominal Pain, Adult. - Prescriptions for Cipro 500 mg Oral Tablet - take 1 tablet by ORAL route every 12 hours; 14 tablet. Pyridium 200 mg Oral Tablet - take 1 tablet by ORAL route every 8 hours for 3 days; 9 tablet. Zofran 4 mg Oral Tablet - take 1 tablet by ORAL route 4 times per day As needed; 10 tablet. - Medication Reconciliation, Local Pharmacy Hours form. - Follow up: [facility]; When: As needed; Reason: Continuance of care. - Problem is an ongoing problem. - Symptoms are unchanged. Historical: - Allergies: No known drug Allergies; - Home Meds: 1. levothyroxine 175 mcg Oral tab 1 tab once daily 2. Zofran (as hydrochloride) 4 mg Oral tab (Last dose: 11/17/2016 13:30) 3. Ortho Tri-Cyclen (28) 0.18/0.215/0.25 mg-35 mcg (28) Oral tab 1 tab once daily - PMHx: Hypothyroidism; - PSHx: none; - Social history: Smoking status: Patient states was never smoker of tobacco. No barriers to communication noted, The patient speaks fluent Slovenian, Speaks appropriately for age. - Family history: Not pertinent. - : The pt / caregiver states he / she is not on anticoagulants. Home medication list is obtained from the patient. - Exposure Risk Screening:: None identified. FOURCHETTE SEWER: 11/17 14:29 LMP 11/08/2016 hs1 Vital Signs: 14:21 BP 115 / 73; Pulse 94; Resp 18 S; Temp 97.5(O); Pulse Ox 100% on R/A; Weight 99.79 kg / dd6 220 lbs (R); Height 68 in. (172.72 cm) (R); 17:37 BP 110 / 70; Pulse 80; Resp 18; Temp 97.0(O); Pulse Ox 100% on R/A; Pain 0/10; jmb 14:21 Body Mass Index 33.45 (99.79 kg, 172.72 cm) dd6 MDM: 14:35 NS 0.9% 1000 ml IV at bolus once ordered. ef1 14:35 Ondansetron 4 mg IVP once ordered. ef1 14:35 ketorolac 30 mg IVP once ordered. ef1 14:35 IV Saline Lock ordered. ef1 14:35 Undress patient appropriately for examination ordered. ef1 14:35 UCG by Nursing ordered. ef1 14:36 Amylase Ordered. EDMS 14:36 Basic Metabolic Profile Ordered. EDMS 14:36 CBC with Diff Ordered. EDMS 14:36 Lipase Ordered. EDMS 14:36 Liver Profile Ordered. EDMS 14:36 Urinalysis Ordered. EDMS 14:36 Urine Culture Ordered. EDMS 14:36 CT ABD & PELVIS: IV Contrast Only Ordered. EDMS 14:36 NOTHING BY MOUTH+DIET ordered. EDMS 15:10 CBC with Diff Reviewed. ef1 15:21 Urinalysis Reviewed. ef1 15:42 Financial registration complete. zo 15:50 [facility] Payment Agreement was scanned into [employer] and attached to record. zo 16:11 Basic Metabolic Profile Reviewed. ke 16:11 Lipase Reviewed. ke 16:11 Amylase Reviewed. ke 16:11 Liver Profile Reviewed. ke 17:25 Ciprofloxacin 500 mg PO once ordered. ke 17:25 Phenazopyridine 200 mg PO once ordered. ke 11/18 10:08 T-Sheet-- Draft Copy was scanned into [employer] and attached to record. gb Point of Care Testing: Urine : 11/17 14:48 hCG Reading: Negative; Control Reading: Positive; ms18 Ranges: Administered Medications: 14:52 Drug: NS 0.9% 1000 ml [sodium chloride 0.9 % intravenous solution] Route: IV; Rate: mcp bolus; Site: left hand; 14:52 Drug: Ondansetron 4 mg [ondansetron HCl 2 mg/mL intravenous solution (2 mL)] Route: mcp IVP; Site: left hand; 14:52 Drug: ketorolac 30 mg [ketorolac 30 mg/mL (1 mL) injection solution (1 mL)] Route: IVP; mcp Site: left hand; 17:25 Drug: Ciprofloxacin 500 mg [ciprofloxacin 500 mg tablet (1 tabs)] Route: PO; marcus 17:25 Drug: Phenazopyridine 200 mg [phenazopyridine 100 mg tablet (2 tabs)] Route: PO; marcus Signatures: Dispatcher [employer] EDMS Barbara Arce, Tucker Reg gb Marques Ying, COMPENSATION/BENEFITS SPECIALIST COMPENSATION/BENEFITS SPECIALIST Ofe Short Erica, PA-C PAMarcus ef1 Trish Talley RN RN hs1 José Antonio Meléndez RN RN Mirta Dick RN [facility] The chart was reviewed and I authenticate all verbal orders and agree with the evaluation and treatment provided.Attachments: 15:50 [facility] Payment Agreement zo 11/18 10:08 T-Sheet-- Draft Copy gb Chart Complete MTDD
== END 2016-11-17 17:40 | disposition home or self-care (01) ==
LOC: M ED 14:19
DX: N39.0 Urinary tract infection, site not specified (principal); R10.31 Right lower quadrant pain; R11.2 Nausea with vomiting, unspecified; E03.9 Hypothyroidism, unspecified; Z79.3 Long term (current) use of hormonal contraceptives; Z79.899 Other long term (current) drug therapy
CPT/HCPCS: 36415; 74177; 80048; 80076; 81001; 81025; 82150; 83690; 85025; 87088; 87186; 96374; 96375; 99284; J1885; J2405; Q9967

== ENCOUNTER → 2017-05-26 | Outpatient (CLI) | payer OTHER ==
[~2017-05-26] MED LIST changes: +CELE20TA PO; +LEVO10VL PO; +LEVO200T31 PO; +TRAZO50TA PO
--- NOTE | 2017-05-26 13:33 | REP ---
First trimester obstetric ultrasound: The study is performed with transabdominal and Doppler ultrasound assessment: There are no comparisons available. There is an intrauterine gestational sac with a pole. The heart rate is 174 beats per minute. The pole crown-rump length is 3.8 centimeters corresponding to 10 weeks 5 days gestational age. The AROLDO is 12/17/2017. There is a subchorionic hematoma at the inferior margin of the gestational sac measuring 8.9 by 9.7 x 13.3 mm. The maternal adnexa and cul-de-sac are unremarkable except for A 1.8 cm left ovarian cyst, likely a corpus luteum. With Doppler assessment there is vascular flow in both ovaries. There is no free fluid in the pelvis. Signed by Oskar Brooks MD 05/26/2017 01:24 P
== END ==
LOC: M RAD 12:09
PROVIDERS: ATTEND Midwife
DX: O99.89 Other specified diseases and conditions complicating pregnancy, childbirth and the puerperium (principal); N83.202 Unspecified ovarian cyst, left side; Z3A.10 10 weeks gestation of pregnancy

== ENCOUNTER 2017-07-16 15:37 | Inpatient (IN) | payer OTHER ==
[~2017-07-16] VITALS: Ht 172.7 cm; Wt 97.7 kg
[~2017-07-16 15:37] MED LIST changes: -CELE20TA PO; -LEVO10VL PO; -LEVO200T31 PO; -TRAZO50TA PO
[2017-07-16] MEDS ORDERED: LEVO10VL PO (15:44)
[2017-07-16] MEDS ORDERED: CELE20TA PO (15:44)
[2017-07-16 16:38] LABS: MEAN CORPUSCULAR HGB CONC 33.4 g/dl (32.0-36.5); MEAN CORPUSCULAR VOLUME 89.8 fl (80.0-96.0); WHITE BLOOD COUNT 9.4 K/mm3 (4.0-10.0)
[2017-07-16 17:04] LABS: ALBUMIN 3.4 GM/DL (3.2-5.2); ALBUMIN/GLOBULIN RATIO 0.85 (1.00-1.93); ALKALINE PHOSPHATASE 71 U/L (45-117); ALT/SGPT 18 U/L (12-78); ANION GAP 10 MEQ/L (8-16); AST/SGOT 14 U/L (15-37); BILIRUBIN,DIRECT < 0.1 MG/DL (0.0-0.2); BILIRUBIN,TOTAL 0.2 MG/DL (0.2-1.0); BLOOD UREA NITROGEN 15 MG/DL (7-18); CARBON DIOXIDE LEVEL 23 MEQ/L (21-32); CHLORIDE LEVEL 107 MEQ/L (98-107); CREATININE FOR GFR 0.53 MG/DL (0.55-1.02); GLOMERULAR FILTRATION RATE > 60.0 (>60); GLUCOSE, FASTING 81 MG/DL (70-105); POTASSIUM SERUM 3.9 MEQ/L (3.5-5.1); SODIUM LEVEL 140 MEQ/L (136-145); TOTAL PROTEIN 7.4 GM/DL (6.4-8.2)
[2017-07-16 18:30] LABS: METHADONE URINE NEGATIVE (NEGATIVE)
[2017-07-16] MEDS ORDERED: traZODone 50 MG TAB PO PRN (19:00)
[2017-07-16] MEDS ORDERED: ACETAMINOPHEN TAB 650MG DOSE (2X325MG) PO PRN (19:00)
[2017-07-16] MEDS ORDERED: MOM 30ML SUSPENSION UDC PO PRN (19:00)
[2017-07-16] MEDS ORDERED: MAALOX 30 ML SUSP *UDC PO PRN (19:00)
[2017-07-16] MEDS ORDERED: LEVO200T31 PO (19:32)
[2017-07-17] MEDS: LEVOTHYROXINE 100MCG TABLET (0.1MG) PO SCH (05:37)
[2017-07-17 06:38] VITALS: BP 109/60
[2017-07-17] MEDS: CitaloPRAM (CeleXA) 20 MG TAB PO SCH (08:07)
[2017-07-17] MEDS: PRENATAL VITAMINS CHEWABLE TABLET PO SCH (08:07)
[2017-07-17 18:05] VITALS: BP 118/62
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
[2017-07-18] MEDS: LEVOTHYROXINE 100MCG TABLET (0.1MG) PO SCH (06:03)
[2017-07-18 06:40] VITALS: BP 115/56
[2017-07-18] MEDS: CitaloPRAM (CeleXA) 20 MG TAB PO SCH (08:38)
[2017-07-18] MEDS: PRENATAL VITAMINS CHEWABLE TABLET PO SCH (08:38)
--- NOTE | 2017-07-18 17:42 | MHIPN ---
DATE: 07/18/2017 The patient today states, "I'm feeling better." She says she slept well and she did not even have to try the trazodone. She feels that she is beginning to feel better as she is getting a lot more support from her family and she feels that therapy has been helping her mood a lot. MENTAL STATUS EXAMINATION: She is alert and oriented times three. Eye contact is fairly good. Psychomotor activity is normal. There is no formal thought disorder. She says her mood is, "better." Affect: Full range and appropriate. She is not psychotic, suicidal or homicidal. Concentration is fair. Memory intact. Insight and judgment is fair. DIAGNOSES: 1. Other specified anxiety disorder. 2. Posttraumatic stress disorder. TREATMENT PLAN: At this point, we will continue to monitor the patient for further stabilization of her mood and for continued resolution of any suicidal or homicidal ideations.
[2017-07-18 18:07] VITALS: BP 106/54
[2017-07-19] MEDS: LEVOTHYROXINE 100MCG TABLET (0.1MG) PO SCH (06:05)
[2017-07-19 06:47] VITALS: BP 111/56
[2017-07-19 07:32] LABS: BASO % 0.4 % (0.0-1.0); EOS # 0.1 K/mm3 (0.0-0.50); EOS % 0.8 % (0.0-3.0); LARGE UNSTAINED CELL # 0.1 K/mm3 (0.0-0.4); LARGE UNSTAINED CELL % 1.9 % (0.0-4.0); LYMPH # 1.6 K/mm3 (1.5-6.5); LYMPH % 21.3 % (24.0-44.0); MEAN CORPUSCULAR HGB CONC 33.5 g/dl (32.0-36.5); MEAN CORPUSCULAR VOLUME 89.5 fl (80.0-96.0); MONO # 0.4 K/mm3 (0.0-0.8); MONO % 5.7 % (0.0-5.0); NEUTROPHILS # 4.9 K/mm3 (1.8-7.7); NEUTROPHILS % 69.9 % (36.0-66.0); PLATELET COUNT, AUTOMATED 126 k/mm3 (150-450)
[2017-07-19] MEDS: CitaloPRAM (CeleXA) 20 MG TAB PO SCH (07:52)
[2017-07-19] MEDS: PRENATAL VITAMINS CHEWABLE TABLET PO SCH (07:53)
[2017-07-19 08:21] LABS: THYROXINE (T4) 14.9 UG/DL (4.5-12.0)
[2017-07-19 18:00] VITALS: BP 112/65
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
[2017-07-20] MEDS: LEVOTHYROXINE 100MCG TABLET (0.1MG) PO SCH (06:00)
[2017-07-20 06:35] VITALS: BP 115/56
[2017-07-20] MEDS: PRENATAL VITAMINS CHEWABLE TABLET PO SCH (08:07)
[2017-07-20] MEDS: CitaloPRAM (CeleXA) 20 MG TAB PO SCH (08:07)
--- NOTE | 2017-07-20 08:27 | HPE ---
DATE OF ADMISSION: 07/16/2017 HISTORY OF PRESENT ILLNESS: Please refer to psychiatric history and evaluation for further details on this admission. This examination and history is intended for medical issues, which may need treatment, followup or consult on this 22-year-old female. ALLERGIES: No known allergies. PRIMARY CARE PROVIDER: Dr. Emmanuel at [facility]. OBSTETRICS: She goes to the [facility]. Her next appointment is 08/01/2017. SOCIAL HISTORY: She is but getting . 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 Ethyl alcohol (EtOH), none since February 2017. Prior to that, she drank approximately five drinks of alcohol on the weekends. Smoking none. Recreational drug use none. PAST MEDICAL HISTORY: 1. Posttraumatic stress disorder (PTSD). 2. Hypothyroidism. PAST SURGICAL HISTORY: Negative. HOME MEDICATIONS: - Celexa 20 mg by mouth daily - levothyroxine 200 mcg by mouth daily - multivitamin one by mouth daily FAMILY HISTORY: Noncontributory. LABORATORY DATA: WBC 9.4, hemoglobin 13, hematocrit 38.8. Platelets 143. Will recheck in the morning. Lytes normal. BUN and creatinine 15 and 0.53. TSH was slightly elevated at 3.870. We will do a thyroid panel in the morning. REVIEW OF SYSTEMS: 10-systems review was done, and other than being , was unremarkable. PHYSICAL EXAMINATION: A 22-year-old cooperative female in no acute distress. Height 68 inches, weight 97.7 kg, body mass index (BMI) 32.8. Blood pressure 106/54, pulse 84, respirations 16, temperature 98.6. GENERAL: The patient is alert and oriented times three. HEENT: Pupils equal and react to light. Extraocular movement intact. Sclerae clear. Conjunctivae normal. No facial asymmetry. Pharynx, tongue, gums pink and moist. Tongue is midline. NECK: Supple without lymphadenopathy. No thyromegaly. No goiter. Carotids 2+ without bruits. CHEST: Clear to auscultation without wheeze or retraction. HEART: Regular. ABDOMEN: Benign. Bowel sounds are positive. GENITOURINARY/RECTAL: Not done. EXTREMITIES: Equal strength, full range of motion. No cyanosis, clubbing or edema. Peripheral pulses equal and palpable bilaterally. SKIN: Warm and dry. IMPRESSION: 1. Psychiatric plan per psychiatry. 2. History of hypothyroidism on levothyroxine. Thyroid stimulating hormone (TSH) is minimally elevated at 3.870. Will do thyroid panel in the morning. 3. 17 weeks . Continue followup with E[facility] Esparza. Her next appointment is 08/01/2017. No other acute medical issues.
[2017-07-20 18:00] VITALS: BP 98/66
--- NOTE | 2017-07-20 18:47 | MHIPNPDOC ---
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 [place] very angry, unsupported by her BRINDA. VITAL SIGNS: See below. NEW TEST RESULTS: N/A CURRENT MEDICATIONS: See below. MENTAL STATUS EXAMINATION: Patient is a 22-year old female, who is dressed in hospital clothes, alert and cooperative, with fair eye contact, good hygiene, fairly groomed Speech: Coherent Language skills are Good Thought processes including: Intact. Thought content: About how she will try to apply the recently learned coping skills to her daily life. Abstract reasoning, and computation: Fair Description of associations: Not loose Description of abnormal or psychotic thoughts: Denies A/V hallucinations, denies SI/HI, denies thought delusions Judgment: Improving Insight: Improving Orientation: Oriented x 3 Recent and remote memory: Intact Attention span and concentration: Fair Language: Fair. Fund of knowledge: Fair Mood: Less anxious than yesterday Affect: Mood congruent DIAGNOSES: 1. Other specified anxiety disorder. 2. Posttraumatic stress disorder. ASSESSMENT: Patient still minimized her depression but was able to talk about her frustration with the . She said her major stressor is her job, not her divorce, although this contributes to too. She is still not talking about this problem, her divorce. She insists she has a good relationship with her soon to be ex . Will discuss this situation with her tomorrow. MANAGEMENT PLAN: Will continue with the same treatment plan and if stable, she could be discharged on 07/22/17 TIME SPENT: 30 minutes. Vital Signs Vital Signs Date Time Temp Pulse Resp B/P (MAP) Pulse Ox O2 Delivery O2 Flow Rate FiO2 07/20/17 18:00 98.5 78 14 98/66 (77) 07/20/17 06:35 Room Air 07/16/17 20:25 99 Current Medications Current Medications Acetaminophen (Tylenol Tab) 650 mg Q6HP PRN PO HEADACHE or DISCOMFORT; Start at 19:00; Stop 08/15/17 at 18:59 Al Hydrox/Mg Hydrox/Simethicone (Mylanta) 30 ml Q4HP PRN PO HEARTBURN/ INDIGESTION; Start 07/16/17 at 19:00; Stop 08/15/17 at 18:59 Citalopram Hydrobromide (CeleXA) 20 mg DAILY PO Last administered on 07/20/17 08:07; Start 07/17/17 at 09:00; Stop 08/16/17 at 08:59 Home Med (Med Rec Complete!) ASDIRECTED XX ; Start 07/16/17 at 19:45; Stop at 19:45; Status DC Levothyroxine Sodium (Synthroid) 200 mcg DAILY@06 PO Last administered on 06:00; Start 07/17/17 at 06:00; Stop 08/16/17 at 05:59 Magnesium Hydroxide (Milk Of Magnesia) 30 ml DAILYPRN PRN PO CONSTIPATION; Start 07/16/17 at 19:00; Stop 08/15/17 at 18:59 Prenat Multivit/ [place]/Iron/Folic Ac ( Vitamins) 1 tab DAILY PO Last administered on 07/20/17 08:07; Start 07/17/17 at 09:00; Stop 08/16/17 at 08:59 Trazodone HCl (Desyrel) 50 mg QHSP PRN PO INSOMNIA; Start 07/16/17 at 19:00; Stop 08/15/17 at 18:59 Allergies Coded Allergies: No Known Allergies (Unverified , 01/24/16) SHAD LOONEY MD Jul 20, 2017 18:47
[2017-07-21] MEDS: LEVOTHYROXINE 100MCG TABLET (0.1MG) PO SCH (05:52)
[2017-07-21 06:31] VITALS: BP 115/64
[2017-07-21] MEDS: CitaloPRAM (CeleXA) 20 MG TAB PO SCH (08:12)
[2017-07-21] MEDS: PRENATAL VITAMINS CHEWABLE TABLET PO SCH (08:12)
[2017-07-21 18:00] VITALS: BP 123/57
--- NOTE | 2017-07-21 20:00 | MHIPNPDOC ---
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 [place] very angry, unsupported by her BRINDA. Today she said she feels much better, she has been able to calm down, do some inner work, gain insight and coping skills. She says she feels excited about leaving tomorrow. VITAL SIGNS: See below. NEW TEST RESULTS: N/A CURRENT MEDICATIONS: See below. MENTAL STATUS EXAMINATION: Patient is a 22-year old female, dressed in hospital clothes, pleasant, cooperative, with good eye contact Speech: Intact Language skills Fair Thought processes including: Goal oriented, coherent, rational Thought content: Coherent. Thinking about her next sister's visit and spending time with her one year old girl Abstract reasoning, and computation: Fair Description of associations: Good Description of abnormal or psychotic thoughts: Denies A/V hallucinations, denies SI/HI, denies thought delusions Judgment: Improved Insight: Improved Orientation: Oriented x 3 Recent and remote memory: Intact Attention span and concentration: Good Language: Fair. Fund of knowledge: Good Mood: Euthymic Affect: Mood congruent DIAGNOSES: 1. Other specified anxiety disorder. 2. Posttraumatic stress disorder. ASSESSMENT: Patient is goal oriented, is excited about being discharged and being able to reunite with her daughter (one year old). She has been having a good response to medications, has been attending groups and gaininig insight, learning coping skills. MANAGEMENT PLAN: Will continue with the same treatment plan. Will D/C tomorrow TIME SPENT: 30 minutes. Vital Signs Vital Signs Date Time Temp Pulse Resp B/P (MAP) Pulse Ox O2 Delivery O2 Flow Rate FiO2 07/21/17 18:00 98.6 101 16 123/57 (79) 07/21/17 06:31 Room Air 07/16/17 20:25 99 Current Medications Current Medications Acetaminophen (Tylenol Tab) 650 mg Q6HP PRN PO HEADACHE or DISCOMFORT; Start at 19:00; Stop 08/15/17 at 18:59 Al Hydrox/Mg Hydrox/Simethicone (Mylanta) 30 ml Q4HP PRN PO HEARTBURN/ INDIGESTION; Start 07/16/17 at 19:00; Stop 08/15/17 at 18:59 Citalopram Hydrobromide (CeleXA) 20 mg DAILY PO Last administered on 07/21/17 08:12; Start 07/17/17 at 09:00; Stop 08/16/17 at 08:59 Home Med (Med Rec Complete!) ASDIRECTED XX ; Start 07/16/17 at 19:45; Stop at 19:45; Status DC Levothyroxine Sodium (Synthroid) 200 mcg DAILY@06 PO Last administered on 05:52; Start 07/17/17 at 06:00; Stop 08/16/17 at 05:59 Magnesium Hydroxide (Milk Of Magnesia) 30 ml DAILYPRN PRN PO CONSTIPATION; Start 07/16/17 at 19:00; Stop 08/15/17 at 18:59 Prenat Multivit/ [place]/Iron/Folic Ac ( Vitamins) 1 tab DAILY PO Last administered on 07/21/17 08:12; Start 07/17/17 at 09:00; Stop 08/16/17 at 08:59 Trazodone HCl (Desyrel) 50 mg QHSP PRN PO INSOMNIA; Start 07/16/17 at 19:00; Stop 08/15/17 at 18:59 Allergies Coded Allergies: No Known Allergies (Unverified , 01/24/16) SHAD LOONEY MD Jul 21, 2017 20:00
[2017-07-22] MEDS: LEVOTHYROXINE 100MCG TABLET (0.1MG) PO SCH (06:06)
[2017-07-22 06:26] VITALS: BP 110/56
[2017-07-22] MEDS: PRENATAL VITAMINS CHEWABLE TABLET PO SCH (08:12)
[2017-07-22] MEDS: CitaloPRAM (CeleXA) 20 MG TAB PO SCH (08:12)
[2017-07-22] MEDS ORDERED: LEVO200T31 PO (09:30)
[2017-07-22] MEDS ORDERED: TRAZO50TA PO (09:30)
--- NOTE | 2017-07-22 10:34 | MHDSPDOC ---
[facility] Discharge Summary Discharge Summary DATE OF ADMISSION: Jul 16, 2017 at 18:46 DATE OF DISCHARGE: 07/22/2017 at 1000 DISCHARGE DIAGNOSES: 1. Other specified anxiety disorder. 2. Posttraumatic stress disorder. 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 She reported multiple recent stressors which were contributing to her depressed/irritable mood. CONSULTANTS INVOLVED: none TREATMENT AND PROGRESS ON THE UNIT : Patient was admitted for safety precautions and resumed on her home medications. Her levothyroxine had been reduced to 100mcg daily after a lapse in her prescription, this was increased to 200mcg daily to resume her regular dose. Patient engaged in groups readily and reported great benefit in learning coping skills to deal with her stressors. Patient had plans to return to [place] and continue with Behavioral [facility] for her outpatient needs. She was able to describe details of her learning and reported that she acknowledged that from the stressors and "leaving work at work" would be most beneficial. HOSPITAL COURSE: Patient interacted well on the unit, observed to be bright in affect and seeking out peers to engage. She participated in multiple groups and readily developed new copings skills to address her issues. She had no behavioral problems and required no PRNs for anxiety or sleep. Patient utilized her time to get a loan for new housing opportunities which would be more beneficial to her as well as seeking information on childcare options through [place] to assist her in the future. DISCHARGE ASSESSMENT: 22 year old woman with non-combat related PTSD and multiple recent psychosocial stressors which contributed to a loss of functioning and suicidal/homicidal ideation without intent or plan. Patient quickly recovered when removed from her regular stressors and was able to readily identify particular events which led to her inability to cope. She is future-oriented at this time, with plans to return to work and cooperate with her command in order to resolve communication issues which had been her primary work-related stress. She is not a danger to herself or others and would be safe to discharge with outpatient follow-up at this time. MENTAL STATUS EXAMINATION ON DISCHARGE: Patient is a 22-year old female, who is dressed in [facility]; she is calm and cooperative, has good hygiene/grooming, and appears her stated age; patient makes good eye contact. Speech is fluent; normal rate, volume, and tone Thought processes including: logical, linear, coherent Thought content: denies SI/HI; focused on seeing her daughter again and developing plans to foster better communication with her command Abstract reasoning, and computation: intact Description of associations: intact Description of abnormal or psychotic thoughts: denies AVH, does not appear internally preoccupied; no paranoia or delusions elicited Judgment: good Insight: good Orientation to x3 Recent and remote memory: intact Attention span and concentration: intact Mood: "I feel good" Affect: bright; full range; congruent to stated mood and thought content MEDICATIONS ON DISCHARGE: - Celexa 20mg daily for mood - Levothyroxine 200mcg daily for hypothyroidism - Trazodone 50mg QHS PRN for sleep PLAN/FOLLOWUP ARRANGEMENTS: discharge to home with escort; patient will follow-up with [facility] for outpatient services The amount of time spent in the coordination of care for this patient was approximately 30 minutes. Vital Signs/I&Os Vital Signs Date Time Temp Pulse Resp B/P (MAP) Pulse Ox O2 Delivery O2 Flow Rate FiO2 07/22/17 06:26 96.4 82 16 110/56 (74) 07/21/17 06:31 Room Air 07/16/17 20:25 99 Medications Scheduled Citalopram Hydrobromide (Celexa) 20 Mg Tab, 20 MG PO DAILY, (Reported) Levothyroxine Sodium (Levoxyl) 200 Mcg Tab, 200 MCG PO DAILY for SEE LABEL COMMENTS for 30 Days, #30 Take 1 tab daily Multivitamins/ ( Complete 14-0.4 mg) 1 Tab Tab, 1 TAB PO DAILY, (Reported) Scheduled PRN Trazodone HCl (Trazodone HCl) 50 Mg Tab, 50 MG PO QHSP PRN for INSOMNIA for 14 Days, #14 Allergies Coded Allergies: No Known Allergies (Unverified , 01/24/16) GRIFFIN BHANDARI MD Jul 22, 2017 09:31
== END 2017-07-22 10:00 | disposition home or self-care (01) | DRG 781 ==
LOC: M ED 15:37 → M ED INP 18:46 → M PSY 20:32
PROVIDERS: ADMIT Psychiatry & Neurology Psychiatry; ATTEND Psychiatry & Neurology Psychiatry
DX: O99.342 Other mental disorders complicating pregnancy, second trimester (principal); Z3A.17 17 weeks gestation of pregnancy; F41.8 Other specified anxiety disorders; F43.10 Post-traumatic stress disorder, unspecified; E03.9 Hypothyroidism, unspecified; O99.282 Endocrine, nutritional and metabolic diseases complicating pregnancy, second trimester; Z62.810 Personal history of physical and sexual abuse in childhood; Z63.5 Disruption of family by separation and divorce; Z79.899 Other long term (current) drug therapy

== ENCOUNTER 2017-11-11 11:21 | Outpatient (CLI) | payer OTHER ==
[2017-11-11 12:06] LABS: HEMOGLOBIN 11.2 g/dl (12.0-16.0); MEAN CORPUSCULAR HGB CONC 32.9 g/dl (32.0-36.5); MEAN CORPUSCULAR VOLUME 88.1 fl (80.0-96.0); PLATELET COUNT, AUTOMATED 130 10^3/uL (150-450); RED BLOOD COUNT 3.86 10^6/uL (4.00-5.40); WHITE BLOOD COUNT 9.7 10^3/uL (4.0-10.0)
[2017-11-11 12:24] LABS: INR 0.92; PROTHROMBIN TIME 12.4 SECONDS (12.4-14.5)
[2017-11-11 12:25] LABS: FIBRINOGEN 481 MG/DL (221-452); PARTIAL THROMBOPLASTIN TIME 27.9 SECONDS (26.8-37.9)
[2017-11-11 13:17] LABS: ETHYL ALCOHOL (ETHANOL) < 0.003 % (0.000-0.010)
[2017-11-11 13:36] LABS: AMPHETAMINES URINE REFLEX NEGATIVE (NEGATIVE); BARBITURATES URINE REFLEX NEGATIVE (NEGATIVE); BENZODIAZEPINES URINE REFLEX NEGATIVE (NEGATIVE); CANNABINOIDS URINE REFLEX NEGATIVE (NEGATIVE); COCAINE METABOLITE URINE REFLE NEGATIVE (NEGATIVE); METHADONE URINE REFLEX NEGATIVE (NEGATIVE); OPIATES URINE REFLEX NEGATIVE (NEGATIVE); PHENCYCLIDINE URINE REFLEX NEGATIVE (NEGATIVE)
== END 2017-11-11 15:46 | disposition home or self-care (01) ==
LOC: M LDO 11:21
DX: O99.89 Other specified diseases and conditions complicating pregnancy, childbirth and the puerperium (principal); R10.9 Unspecified abdominal pain; Y92.9 Unspecified place or not applicable; Y93.9 Activity, unspecified; O99.343 Other mental disorders complicating pregnancy, third trimester; O99.313 Alcohol use complicating pregnancy, third trimester; Z3A.34 34 weeks gestation of pregnancy; Z79.899 Other long term (current) drug therapy
CPT/HCPCS: 76815

== ENCOUNTER 2017-12-17 04:13 | Inpatient (IN) | payer OTHER ==
[2017-12-17] MEDS: LACTATED RINGER'S 1000 ML IV (07:50)
[2017-12-17 08:16] LABS: HEMATOCRIT 35.4 % (36.0-47.0); HEMOGLOBIN 11.6 g/dl (12.0-16.0); MEAN CORPUSCULAR HEMOGLOBIN 28.5 pg (27.0-33.0); MEAN CORPUSCULAR HGB CONC 32.8 g/dl (32.0-36.5); PLATELET COUNT, AUTOMATED 128 10^3/uL (150-450); RED BLOOD COUNT 4.07 10^6/uL (4.00-5.40); RED CELL DISTRIBUTION WIDTH 13.8 % (11.5-14.5); WHITE BLOOD COUNT 12.5 10^3/uL (4.0-10.0)
[2017-12-17] MEDS ORDERED: OXYTOCIN 30 UNITS IN 0.9% NaCl 500ML IV BAG (J2590) As Ordered (09:03)
[2017-12-17] MEDS ORDERED: FENTANYL 2MCG/ML ROPIVACAINE 0.2% IN 0.9% NACL 200ML IVBAG As Ordered (09:03)
[2017-12-17] MEDS: LR 1,000 ML IV (10:19)
[2017-12-17] MEDS ORDERED: EPIDURAL COMMENT XX (10:45)
[2017-12-17] MEDS ORDERED: FENTANYL/ROPIVACAINE/NACL BAG 200 ML EPIDURAL (10:45)
[2017-12-17] MEDS ORDERED: REFRIGERATOR IV KEYS XX (10:45)
[2017-12-17] MEDS ORDERED: LACTATED RINGER'S 1000 ML IV (10:45)
[2017-12-17] MEDS ORDERED: diphenhydrAMINE INJ 50MG/ML VIAL (J1200) IV (10:45)
[2017-12-17] MEDS ORDERED: ONDANSETRON 4MG/2ML VIAL (J2405) IV (10:45)
[2017-12-17] MEDS ORDERED: EPIDURAL/PCA KEYS XX (10:45)
[2017-12-17] MEDS ORDERED: NALOXONE INJ 0.4 MG/1 ML VIAL (J2310) IV (10:45)
[2017-12-17] MEDS ORDERED: ePHEDrine INJ 50 MG/ML VIAL IV (10:45)
[2017-12-17] MEDS: OXYTOCIN INJ 10 UNITS/ML VIAL (J2590) IV (13:17)
[2017-12-17] MEDS ORDERED: RHOGAM 300 MCG (1500 IU) INJ (J2790) IM (13:45)
[2017-12-17] MEDS ORDERED: ANUSOL HC CREAM 30GM TOP (13:45)
[2017-12-17] MEDS ORDERED: MEASLES,MUMPS,RUBELLA VACCINE INJ (MMR-II) (90707) SC (13:45)
[2017-12-17] MEDS ORDERED: IBUPROFEN 800 MG TAB PO (13:45)
[2017-12-17] MEDS ORDERED: DOCUSATE SODIUM 100 MG CAP PO (13:45)
[2017-12-17] MEDS ORDERED: DIBUCAINE 1% OINTMENT 30GM TOP (13:45)
[2017-12-17] MEDS ORDERED: ACETAMINOPHEN 500 MG TAB PO (13:45)
[2017-12-17] MEDS ORDERED: MOM 30ML SUSPENSION UDC PO (13:45)
[2017-12-17] MEDS ORDERED: METHYLERGONOVINE MALEATE 0.2 MG TAB PO (13:45)
[2017-12-17 14:01] LABS: CORD GAS ABE A -4.1; CORD GAS HCO3 A 22.7 MEQ/L; CORD GAS HCO3 V 20.6 MEQ/L; CORD GAS O2 SAT A 27.4 %; CORD GAS O2 SAT V 63.8 %; CORD GAS PCO2 A 48.1 mmHg; CORD GAS PCO2 V 36.2 mmHg; CORD GAS PH A 7.292 UNITS; CORD GAS PH V 7.373 UNITS; CORD GAS PO2 A 16.2 mmHg; CORD GAS PO2 V 28.1 mmHg; CORD GAS SBC A 19.5 MEQ/L; CORD GAS SBC V 20.4 MEQ/L; CORD GAS TCO2 A 24.2 MEQ/L; CORD GAS TCO2 V 21.7 MEQ/L
[2017-12-17] MEDS: OXYTOCIN DRIP 30 UNITS in APPROPRIATE DILUENT 1 EA IV ×2 (14:02→17:39)
[2017-12-17] MEDS: CitaloPRAM (CeleXA) 20 MG TAB PO (16:42)
[2017-12-17] MEDS: LEVOTHYROXINE 100MCG TABLET (0.1MG) PO (16:42)
[2017-12-18] MEDS: LEVOTHYROXINE 100MCG TABLET (0.1MG) PO (05:28)
[2017-12-18 07:11] LABS: HEMATOCRIT 32.8 % (36.0-47.0); HEMOGLOBIN 10.7 g/dl (12.0-16.0); MEAN CORPUSCULAR HEMOGLOBIN 28.1 pg (27.0-33.0); MEAN CORPUSCULAR HGB CONC 32.6 g/dl (32.0-36.5); MEAN CORPUSCULAR VOLUME 86.1 fl (80.0-96.0); PLATELET COUNT, AUTOMATED 124 10^3/uL (150-450); RED BLOOD COUNT 3.81 10^6/uL (4.00-5.40); RED CELL DISTRIBUTION WIDTH 14.1 % (11.5-14.5); WHITE BLOOD COUNT 10.2 10^3/uL (4.0-10.0)
[2017-12-18] MEDS: CitaloPRAM (CeleXA) 20 MG TAB PO (09:31)
[2017-12-18] MEDS: PRENATAL VITAMINS CHEWABLE TABLET PO (09:31)
[2017-12-19] MEDS: LEVOTHYROXINE 100MCG TABLET (0.1MG) PO (05:22)
[2017-12-19] MEDS: PRENATAL VITAMINS CHEWABLE TABLET PO (09:16)
[2017-12-19] MEDS: CitaloPRAM (CeleXA) 20 MG TAB PO (09:16)
== END 2017-12-19 12:35 | disposition home or self-care (01) | DRG 775 ==
LOC: M LDO 04:13 → M LDI 05:38 → M OBS 16:07
PROVIDERS: Obstetrics & Gynecology
PROC: 10E0XZZ Delivery of Products of Conception, External Approach (ICD-10-PCS; principal; 2017-12-17)
DX: O99.284 Endocrine, nutritional and metabolic diseases complicating childbirth (principal); Z37.0 Single live birth; O87.2 Hemorrhoids in the puerperium; Z3A.39 39 weeks gestation of pregnancy; E03.9 Hypothyroidism, unspecified; E66.9 Obesity, unspecified; Z68.31 Body mass index [BMI] 31.0-31.9, adult; F41.9 Anxiety disorder, unspecified; Z79.899 Other long term (current) drug therapy; O77.0 Labor and delivery complicated by meconium in amniotic fluid; O22.13 Genital varices in pregnancy, third trimester; I86.8 Varicose veins of other specified sites; O99.214 Obesity complicating childbirth; O99.344 Other mental disorders complicating childbirth